=== PATIENT | female | born 1975 | race Hispanic/Latino ===

== ENCOUNTER 2020-07-14 08:48 | Day surgery (SDC) | payer OTHER ==
[2020-07-14 08:49] LABS: Urine Appearance CLEAR; Urine Bilirubin NEGATIVE (NEG); Urine Blood 1+ (NEG); Urine Color YELLOW; Urine Glucose NEGATIVE (NEG); Urine Protein NEGATIVE (NEG); Urine Urobilinogen 0.2 mg/dL (0.2-1.0); Urine pH 5.5 (5.0-7.0)
[2020-07-14 08:53] LABS: Urine Microscopic Reflex ORDER UMIC
[2020-07-14 08:53] LABS: Absolute Lymphocytes (CBC) 2.4 K/uL (0.7-4.9); Basophils % 0.5 % (0-1.3); Hematocrit 40.2 % (36.0-45.0); Lymphocytes % 40.3 % (15.3-44.8); MPV 9.8 fL (7.6-11.3); RBC Red Blood Cell Count 4.31 M/uL (3.86-4.86)
[2020-07-14] MEDS ORDERED: SCOPOLAMINE HYDROBROMIDE PATCH TD ONE (09:08)
[2020-07-14] MEDS ORDERED: Ringers Lactate 1,000 ML IV ONE ×3 (09:08→09:35)
[2020-07-14] MEDS ORDERED: CEFAZOLIN/SWI 1gm 1 GM/10 ML SYR ONE (09:09)
[2020-07-14 09:13] LABS: Urine Bacteria <20 /HPF (<20); Urine Mucus MOD /HPF (NONE SEEN)
--- NOTE | 2020-07-14 09:17 | RAD REPORT ---
EXAM DESCRIPTION: Ronna Parnell And Lat (2 Views)07/14/2020 8:40 am CLINICAL HISTORY: Preop for breast surgery COMPARISON: None FINDINGS: Areas of scarring or subsegmental atelectasis are present within the lingula and right mid dle lobe. Remainder lungs appear clear. Heart is normal size
[2020-07-14] MEDS ORDERED: propofoL 200 MG/20 ML VIAL IV ONE (09:26)
--- OUTSIDE RECORDS SUMMARY | 2020-07-14 09:26 | XMS REPORT | Continuity of Care Document ---
:1975 Author Organization [facility] [employer] Care Team Providers Name Role Phone [facility] [employer] Unavailable Un available Problems Problem Status Onset Classification Date Comments Sourc e Date Reported Spinal stenosis, 10/27/19 01/24/2018 [facility] South lumbar region 18 [place] without neurogenic claudication LOW BACK Active 09/13/19 [facility] 18 Chuckie Z12.31 - ENCNTR Active 02/15/20 O PID SCREEN MAMMOGRAM FOR 17 [place] MA Wellness examination Active Diagnosis 05/16/2016 [facility] Encounter for Active Diagnosis 05/16/2016 [facility] immunization [facility] Cameron up STD exposure Active Diagnosis 05/16/2016 [facility] Screen for colon Active Diagnosis 05/16/2016 [facility] Seasonal allergies Active Diagnosis 05/15/2016 [facility] Allergic cough Active Diagnosis 05/15/2016 [facility] Encounter for 04/10/2020 OP ID screening mammogram [place] for malignant neoplasm of breast Congenital 01/24/2018 S[facility] Sout h spondylolisthesis Ka ty Low back pain 01/24/2018 SMR S outh [place] Muscle weakness 01/24/2018 [facility] South (generalized) [place] Other muscle spasm 01/24/2018 [facility] [place] Abnormal posture 01/24/2018 SM R [place] Stiffness of 01/24/2018 SMR So uth unspecified joint, K aty not elsewhere classified Medications Medication Details Route Status Patient Ordering Order Source Instructions Provider Date Flonase 1 intranasally Active 50 mcg/inh [facility] spray(s) intranasally 016 [facility] once a day Valtrex 1 tab(s) orally Active 1 g orally SING[facility] once a day at [facility] bedtime Advil 1 tab(s) orally Active 200 mg orally SING[facility] every 6 hours [facility] Group Zyrtec 1 tab(s) orally Active 10 mg orally SINGH [facility] once a day [facility] Allergies, Adverse Reactions, Alerts Substance Category Reaction Severity Reaction Status Date Comments S ource type Reported N.K.D.A. Adverse Info Not Adverse Active [facility] Reaction Available Reaction 6 [facility] No Known Assertion Drug MH OP ID Medication allergy [place] Allergies Immunizations Immunization Date Given Site Status Last Comments Source Updated TDap 03/16/2016 completed [facility] Results No Data Provided for This Section Pathology Reports No Data Provided for This Section Diagnostic Reports Report Value Date Source Breast Mammo Scrn KEENAN 04/08/2020 [facility] Ka ty incl CAD MA BILATERAL DIGITAL SCREENING MAMMOGRAM WITH CAD: 04/08/2020 CLINICAL: Screening Mammogram/Z12.31. Current study was evaluated with a Flame Hardening Machine Setter d Detection (CAD) system. COMPARISON:Comparison is mad e to exams dated: 08/27/2018 mammogram, 02/28/2017 [facility], [facility] TECHNIQUE: Mammographic view s were obtained using digital acquisition. Collecta, version 8.1 was utilized for computer aided detection. FINDINGS: The tissue of both breasts i s heterogeneously dense, which could obscure detection of small masses. Bilateral breast implants ar e intact. There are benign calcifications in both breasts. No suspicious masses, cluste rs of microcalcifications or areas of architectural distortion are demonstrated within either breast. There has been no significant interval change. IMPRESSION: BENIGN RECOMMENDATION:There is no m ammographic evidence of malignancy. A 1 year screening mammogram is recommended.(04/09/2021) This exam was interpreted at [id number] for [facility]. Carol dominguez/penrad:04/08/2020 11:44:13 Elevated Work Platform Operator(s): J Carlos Vuong letter sent: BI-RADS 1/2 Mammogram BI-RADS: 2 Benign Spine lumbar wo PROCEDURE INFORMATION: 09/24/2019 [facility] contrast MRI Exam: MR Lumbar Spine Without Contrast. Exam date and time: 09/24/2019 3:08 PM Age: 44 years old Clinical indication: Other intervertebral disc d egeneration, lumbar region; Radiculopathy, lumbar region; Additional info: / m54.16 radiculopathy, lumbar region, m51.36 other intervertebral disc degener ation, lumbar region TECHNIQUE: Imaging protocol: Multiplanar magnetic resonance images of the lumbar spine without intravenous contrast. COMPARISON: No relevant prior studies available. FINDINGS: Vertebrae: There is no compression fracture defo rmity. There is a grade 1/2 anterolisthesis at L4-L5. There is no spondyloly sis. Spinal cord: The conus medularis is normally pos tioned and there is no intrathecal mass. L1-L2: No significant disc disease. No signific ant spinal canal stenosis. No neural foraminal stenosis. L2-L3: No significant disc disease. No signific ant spinal canal stenosis. No neural foraminal stenosis. L3-L4: At the L3-L4 disc space there is a 2 mm b ulging annulus with a left lateral annular fissure without central or abhishek inal stenosis. L4-L5: At the L4-L5 disc space which is desiccated, there is a grade 1/2, 5 mm anterolisthesis and bulging annulus. There is de generative change of facet joints without spondylolysis. Hypertrophic ligam entum flavum and a 3 mm synovial cyst arising from the medial aspect of right facet joint contributes to minimal to moderate right lateral recess stenosis. There is no central canal stenosis. There are small bilateral dorsal infer ior synovial cysts. L5-S1: No significant disc disease. No signific ant spinal canal stenosis. No neural foraminal stenosis. Soft tissues: The psoas and spinae erectae muscl es are normal. The parially visualized sacral iliac joints are normal. IMPRESSION: At the L4-L5 disc space whic h is desiccated, there is a grade 1/2, 5 mm anterolisthesis and bul ging annulus. There is degenerative change of facet joints without spondylolysis. Hypertrophic ligam entum flavum and a 3 mm synovial cyst arising from the medial aspect of right facet joint contributes to minimal to moderate right lateral recess stenosis. There is no central canal stenosis. There are small bilateral dorsal infer ior synovial cysts. Nelson Isabel MD On 09/24/2019 16:04:40; [facility] [id number] Pelvis Transvaginal US Procedure: Pelvic Ultrasound. 05/08/2019 DENISA G[facility]rie Clinical Indication: Abnormal uterine bleeding. Comparison: None. TRANSABDOMINAL SCAN: Not performed. TRANSVAGINAL SCAN: Endovagin al ultrasound was performed to try and better evaluate the endometrial stripe and adnexal regions. The uterus measures 7.8 x 4.3 x 3.9 cm and demonstrates a 4 mm endometrial stripe. The right ovary was not seen secondary to overlying bowel gas. The left ovary measures 2.5 x 1.8 x 1.1 cm and demonstrates a 1.6 cm dominant follicle. Blood flow is observed within the left ovary. The visualized adnexa are maintained. IMPRESSION: 1. Dominant follicle involving the left ovary. 2. Nonvisualization of the right ovary. SL:[id number] Thyroid US PROCEDURE: THYROID ULTRASOUND 11/19/2018 [facility] INDICATION: Hyperthyroidism COMPARISON: None. TECHNIQUE: Sonographic evalu ation of the thyroid gland is performed using high resolution B-mode and supplemental Doppler imaging. FINDINGS: The right lobe measures 4.6 x 1.4 x 1.7 cm The left lobe measures 4.4 x 1.3 x 1.2 cm The isthmus is normal. The right and left lobes are normal in contour a nd echogenicity. There is a tiny anechoic nod ule in the inferior left thyroid lobe measuring 0.3 x 0.2 x 0.37 cm likely colloid cyst. Small echogenic focus noted. No solid nodules identified. IMPRESSION: Tiny cystic left thyroid nodule likely colloid cyst. Otherwise unremarkable sonographic appearance of the thyroid Location: [facility] Breast Mammo Scrn KEENAN w 08/27/2018 PEDRITO Guthrie simno incl CAD MA BILATERAL DIGITAL SCREENING MAMMOGRAM 3D/2D WITH CAD: 08/27/2018 CLINICAL: Screening/Z12.31. Current study was evaluated with a Flame Hardening Machine Setter d Detection (CAD) system. COMPARISON:Comparison is mad e to exams dated: 02/28/2017 mammogram, 02/25/2015 mammogram, and 01/03/2012 mammogram - [facility]. TECHNIQUE: Digital Breast To mosynthesis was performed and utilized for Interpretation. Collecta, version 8.1 was utilized for computer aided detection. FINDINGS: The tissue of both breasts i s extremely dense. This may lower the sensitivity of mammography. There are benign diffuse nathaniel cifications in both breasts. Bilateral retropectoral saline implants are stable. Implants may obscure breast parenchyma, making mammographic interpretation difficult. No suspicious masses, cluste rs of microcalcifications or areas of architectural distortion are demonstrated within either breast. IMPRESSION: BENIGN RECOMMENDATION:There is no m ammographic evidence of malignancy. A 1 year screening mammogram is recommended.(08/28/2019) Professional services are pr ovided by the [facility] Division of Diagnostic Imaging. Amarilis Estrada M.D., rp/penrad:08/27/2018 13:15:29 Elevated Work Platform Operator(s): Anitra Razo letter sent: BI-RADS 1/2 Mammogram BI-RADS: 2 Benign Breast Mammo Scrn KEENAN - BREAST MAMMO SCRN KEENAN INCL CAD MA 2016 [facility] [place] incl CAD MA BILATERAL DIGITAL SCREENING MAMMOGRAM WITH CAD: 02/28/2017 CLINICAL: Annual Screening/Z 12.31 Encounter For Screening Mammogram For Malignant Neoplasm Of Breast. Current study was evaluated with a Flame Hardening Machine Setter d Detection (CAD) system. Comparison is made to exams dated: 02/25/2015 mammogram and 01/03/2012 mammogram - Anitra Guthrie. The tissue of both breasts i s extremely dense. This may lower the sensitivity of mammography. There are benign appearing c alcifications in both breasts. Bilateral retropectoral saline implants are stable. Implants may obscure breast parenchyma, making mammographic interpretation difficult. No suspicious masses, cluste rs of microcalcifications or areas of architectural distortion are demonstrated within either breast. There has been no significant interval change. IMPRESSION: BENIGN There is no mammographic destiney dence of malignancy. A 1 year screening mammogram is recommended. Professional services are pr ovided by the [facility] of Diagnostic Imaging. Rui Tapia D.O., mdl/penrad:02/28/2017 11:08:57 Elevated Work Platform Operator: Anitra Douglas This exam [place] [id number] [place] [facility] [address], [place] [address]. letter sent: Bilateral Benign Mammogram BI-RADS: 2 Benign Digital Mammo Screening - DIGITAL MAMMO SCREENING KEENAN MA 015 [facility] [place] Keenan MA BILATERAL DIGITAL SCREENING MAMMOGRAM WITH CAD: 02/25/2015 CLINICAL: Annual Screening Bilateral/Same. Current study was evaluated with a Flame Hardening Machine Setter d Detection (CAD) system. Comparison is made to exam d ated: 01/03/2012 mammogram - [facility] Chuckie Guthrie. The tissue of both breasts i s extremely dense. This may lower the sensitivity of mammography. There are benign appearing c alcifications in both breasts. Bilateral retropectoral saline implants are stable. Implants may obscure breast parenchyma, making mammographic interpretation difficult. No suspicious masses, cluste rs of microcalcifications or areas of architectural distortion are demonstrated within either breast. There has been no significant interval change. IMPRESSION: BENIGN There is no mammographic destiney dence of malignancy. A 1 year screening mammogram is recommended. Amarilis Estrada M.D. rp/penrad:02/25/2015 16:19:52 Elevated Work Platform Operator: Shama Cancino [facility] miles G[place]rie This exam [place] [id number] [place] [address] [id number]. letter sent: Normal [place] Mammogram BI-RADS: 2 Benign Consultation Notes No Data Provided for This Section Discharge Summaries No Data Provided for This Section History and Physicals No Data Provided for This Section Vital Signs Vital Sign Value Date Comments Source Temperature Oral (F) 97.8 F 07/13/2017 [facility] Height 163.83 cm 07/13/2017 [facility] BMI Calculated 25.47 07/13/2017 [facility] Weight 68.352 07/13/2017 [facility] Systolic (mm Hg) 138 07/13/2017 [facility] Diastolic (mm Hg) 74 07/13/2017 [facility] Heart Rate 76 07/13/2017 [facility] Temperature Oral (F) 96.4 F 03/16/2016 [facility] Weight 142 03/16/2016 [facility] Height 63 03/16/2016 [facility] Respitory Rate 16 03/16/2016 [facility] Diastolic (mm Hg) 70 03/16/2016 [facility] Systolic (mm Hg) 110 03/16/2016 [facility] Temperature Oral (F) 97.8 F 12/16/2015 [facility] Weight 139 12/16/2015 [facility] Height 63 12/16/2015 [facility] Respitory Rate 16 12/16/2015 [facility] Diastolic (mm Hg) 76 12/16/2015 [facility] Systolic (mm Hg) 110 12/16/2015 [facility] Encounters Location Location Encounter Encounter Reason Attending ADM DC Stat us Source Details Type Number For Provider Date Date Visit [facility] [id number] 09/03 09/03 [facility] 06-4r6u-827 /2014 e [facility] [id number] Group 3d5 [facility] [id number] 09/03 09/03 [facility] 09-4696-b64 e Me d Group 0-4cvv286d9 Group 84c [facility] [id number] 09/03 09/03 [facility] 08-7t15-j2c e Me d Group 4-83b62c1y7 Group b1f [facility] [id number] 09/03 09/03 [facility] f0-4afc-a6 e Me d Group [id number] Group 0e3 [facility] [id number] 09/03 09/03 [facility] 22-41t3-t8g e Me d Group 3-2f9m7g916 Group 580 [facility] [id number] 09/03 09/03 [facility] 3a-6r4x-kjs e Me d Group c-986b7di85 Group 3a2 [facility] [id number] 09/03 09/03 [facility] fe-30j0-5f1 e Me d Group [id number]-i77km9738 Group 33d [facility] [id number] 09/03 09/03 [facility] ab-450a-85 e Me d Group c-0b0vb5hb7 Group 325 [facility] [id number] 09/03 09/03 [facility] c5-4510-acf e Me d Group 2-9o1h49y32 Group 3e4 [facility] [id number] 09/03 09/03 [facility] d1-4afd-a2 e Me d Group 8-ya090xu42 Group c2a [facility] Pre-Cpx [id number] 09/28 09/28 [facility] 77-4396-a53 e Me d Group 8-irj0bu7qw Group 49d [facility] Pre-Cpx [id number] 09/28 09/28 [facility] b5-417e-b80 e Me d Group c-92m6o2b2r Group 6e8 [facility] Pre-Cpx [id number] 09/28 09/28 [facility] be-06x4-o7w e Me d Group d-95xt7e60d Group a36 [facility] Pre-Cpx a89p9l72-rr 09/28 09/28 [facility] 5c-4d02-83j e Me d Group c-28dg9d3e0 Group 2d0 [facility] Pre-Cpx [id number] 09/28 09/28 [facility] 19-4563-998 e Me d Group 6-1se240193 Group 87b [facility] Pre-Cpx 0fy01f0s-9w 09/28 09/28 [facility] bb-4n97-d04 e Me d Group a-2st5961b8 Group c3c [facility] Pre-Cpx [id number] 09/28 09/28 [facility] 75-4bef-b1e e Me d Group [id number]-rmd2719a8 Group fa4 [facility] Pre-Cpx [id number] 09/28 09/28 [facility] a1-439a-858 e Me d Group e-81615ebi0 Group 1fb [facility] Pre-Cpx [id number] 09/28 09/28 [facility] 1a-8l00-04l e Me d Group [id number] Group 7d2 [facility] Pre-Cpx [id number] 09/28 09/28 [facility] ec-425b-8b e Me d Group c-13922cd50 Group 5db [facility] CPX [id number]-yb 10/06 10/[address] [facility] 81-4016-a7d e Me d Group 7-o045lz91t Group b8d [facility] [id number] 10/06 10/06 [facility] 0a-26x0-98l /2014 e Me d Group 0-7e2xd7ee1 Group e83 [facility] CP[facility] [id number] 10/06 10/06 [facility] 98-1v3k-d11 /2014 e Me d Group c-1n464e6c7 Group 444 [facility] CPX 41k7k8m0-7v 10/06 10/06 [facility] f7-8o6k-117 /2014 e Me d Group 4-qymjgs9g9 Group 49f [facility] CPX [id number] 10/06 10/06 [facility] 27-94x5-ott /2014 e Me d Group c-k0j76qj42 Group 721 [facility] [id number] 10/06 10/06 [facility] 0a-4787-b9b /2014 e Me d Group [id number]-w83072z36 Group d94 [facility] CP[facility] [id number] 10/06 10/06 [facility] 9b-453c-afa /2014 e Me d Group a-j1ef4vbx3 Group 378 [facility] [id number]-b6 10/06 10/06 [facility] 72-4eab-a47 /2014 e Me d Group 6-v2j98de68 Group a96 [facility] CP[facility] f4e61qy7-gg 10/06 10/06 [facility] 52-29k6-yy5 /2014 e Me d Group 5-oi86071ke Group 0ff [facility] CPX [id number] 10/06 10/06 [facility] b3-41ce-97c /2014 e Me d Group d-a25w4iw83 Group e31 [facility] Out[facility] Diag [id number] Ewelina 02/25 02/26 [facility] 1 Patronella /2014 [place] [facility] cough/sore [id number] 12/15 12/15 [facility] throat a8-4354-83f /2015 e [facility] Group 3-kjl0ek3ar Group 9e0 [facility] cough/sore 49w08vhz-vu 12/15 12/15 [facility] throat 15-9cw8-45a /2015 e [facility] d Group 8-6l5m5138a Group e19 [facility] cough/sore 61yal916-a5 12/15 12/15 [facility] throat 14-48fc-8bd /2015 e [facility] d Group 2-69m3m92tm Group 9c4 [facility] cpx - appt yq3j7b2o-52 01/31 01/31 [facility] / pcb *02/16 5a-8v5k-pqg /2015 e [facility] 8-m309u23o4 Group 2f7 [facility] cpx - appt [id number] 01/31 01/31 [facility] / pcb *02/16 ee-4038-877 /2015 e [facility] b-n77034t93 Group d94 [facility] cpx - appt [id number]-h4 01/31 01/31 [facility] / pcb *02/16 70-43ef-adc /2015 e [facility] 8-2179k7i44 Group 393 [facility] cpx - appt [id number] 01/31 01/31 [facility] / pcb *02/16 21-78u5-l85 /2015 e [facility] c-91zq6c7gf Group 82d [facility] cpx - appt [id number] 01/31 01/31 [facility] / pcb *02/16 9a-0r74-217 /2015 e [facility] [id number] Group de3 [facility] c[facility] - appt [id number] 01/31 01/31 [facility] / pcb *02/16 64-8g98-59e /2015 [facility] 2-43o89s7yk Group c95 [facility] cpx - appt [id number] 01/31 01/31 [facility] / pcb *02/16 cd-30o8-47l /2015 [facility] f-jb96w8ph1 Group 6af [facility] cpx - appt [id number] 01/31 01/31 [facility] / pcb *02/16 32-01i6-b95 /2015 e [facility] 0-7931h18i3 Group ab6 [facility] c[facility] - appt [id number]-[id number] 01/31 01/31 [facility] / pcb *02/16 5b-02e3-ikv /2015 e [facility] [id number] Group 93f [facility] cpx - appt [id number] 01/31 01/31 [facility] / pcb *02/16 86-56j3-o12 /2015 e [facility] 3-95j84gf61 Group 1c3 [facility] basic/fasti 4v406b9e-ij 03/16 03/16 [facility] ng labs 9f-1j10-317 /2015 e M ed Group d-328r3ro1q Group 3b3 [facility] basic/fasti 14ffcaeb-52 03/16 03/16 [facility] ng labs 48-48k8-h32 e M ed Group 9-k2j325r20 Group 78b [facility] basic/fasti [id number] 03/16 03/16 [facility] ng labs b0-8i8y-h44 /2015 e M ed Group 7-44o2v7uj4 Group 283 [facility] basic/fasti [id number]-f9 03/16 03/16 [facility] ng labs b2-4298-aa e M ed Group 2-i5pw5p191 Group 3ff [facility] basic/fasti 69y27939-10 03/16 03/16 [facility] ng labs e5-412d-951 /2015 e M ed Group 7-h365c357j Group 7fc [facility] basic/fasti 6wx1kux7-03 03/16 03/16 [facility] ng labs 7d-2k7r-9p7 e M ed Group b-h5980l0n0 Group f93 [facility] basic/fasti rl9b8yus-74 03/16 03/16 [facility] ng labs 9c-40fd-bba /2015 e M ed Group f-94585t990 Group e6b [facility] basic/fasti 151ti087-83 03/16 03/16 [facility] ng labs c1-4cdd-817 /2015 e M ed Group d-nl552y1d4 Group eab [facility] FYI only i1vp787e-pi 03/17 03/17 [facility] 63-4891-8c3 /2015 e Me d Group 8-sn71v1cww Group 3b2 [facility] FYI only p4qhx7ov-1i 03/17 03/17 [facility] 1e-8xt5-72q /2015 e Me d Group 0-043n438gx Group c7c [facility] FYI only 76wdn80h-et 03/17 03/17 [facility] 38-0p5h-im5 /2015 e Me d Group 4-0qv56rz73 Group a03 [facility] FYI only [id number]-74 03/17 03/17 [facility] b6-1j87-uik /2015 e Me d Group c-6gbts9706 Group f12 [facility] FYI only iep10743-lv 03/17 03/17 [facility] 95-447c-919 /2015 e Me d Group 4-3d6zdex08 Group 51a [facility] FYI only [id number] 03/17 03/17 [facility] 65-478e-a33 /2015 e Me d Group c-kf5i0k64i Group 460 [facility] FYI only [id number]-43 03/17 03/17 [facility] fb-4584-81d /2015 e Me d Group e-n8zjb8bqe Group 0c1 [facility] FYI only [id number]-[id number] 03/17 03/17 [facility] 6e-46fc-95b /2015 e Me d Group 9-a8473362e Group 6d7 [facility] Vitamin E dy9f7pax-0i 03/17 03/17 [facility] test bb-1ta7-ci0 /2015 e Me d Group 7-0f9xd0a7z Group 92d [facility] Vitamin E b0909vd9-s0 03/17 03/17 [facility] test 86-23j2-581 /2015 e Me d Group 0-s82945iy0 Group 6a9 [facility] Vitamin E [id number] 03/17 03/17 [facility] test 2f-0gw0-94y /2015 e Me d Group 8-eax727180 Group 433 [facility] Vitamin E gx4j4933-m6 03/17 03/17 [facility] test ef-438d-a4d /2015 e Me d Group 3-255c06j99 Group e08 [facility] Vitamin E [id number]-fp 03/17 03/17 [facility] test 06-4077-b44 e Me d Group 3-n678ds3dv Group eef [facility] Vitamin E 3666aw2t-x2 03/17 03/17 [facility] test bb-4327-968 /2015 e Me d Group 9-r01u2ls36 Group 71b [facility] Vitamin E 8uun8119-r1 03/17 03/17 [facility] test f8-419c-bce /2015 e Me d Group a-70759283f Group 8cd [facility] New Refill 12cxy6bb-52 04/03 04/03 [facility] Request 73-4454-8b e M ed Group 7-06cf03fw0 Group c35 [facility] New Refill [id number] 04/03 04/03 [facility] Request 49-4124-936 e M ed Group f-46g0wl0g3 Group 21b [facility] New Refill 4rc4e08c-5j 04/03 04/03 [facility] Request 6e-8v56-w57 e M ed Group 6-g5s304jc5 Group f70 [facility] New Refill [id number]-k5 04/03 04/03 [facility] Request 73-435d-961 /2015 e M ed Group c-yx6yngml5 Group cf8 [facility] New Refill [id number]-77 04/03 04/03 [facility] Request a9-471d-9a4 e M ed Group e-2m328j084 Group 6a4 [facility] New Refill [id number] 04/03 04/03 [facility] Request b4-63z6-oo7 e M ed Group 7-420iq4i66 Group 634 [facility] rx [id number]-u8 04/04 04/04 [facility] clarificati 03-5c11-381 /2015 e Med Group on 9-5482406ri Group 637 [facility] rx [id number]-sk 04/04 04/04 [facility] clarificati 3f-9v43-vl0 e Med Group on 7-szssw0do1 Group c95 [facility] rx [id number] 04/04 04/04 [facility] clarificati fd-3g85-739 /2015 e Med Group on f-0q29z5a5a Group bc8 [facility] rx [id number] 04/04 04/04 [facility] clarificati be-4198-9ed e Med Group on 2-fb2s54h64 Group 959 [facility] rx [id number] 04/04 04/04 [facility] clarificati 73-489c-afd e Med Group on 6-x37s69q0n Group e80 [facility] Unknown [id number]-r0 04/04 04/04 [facility] e5-4845-824 /2015 e Me d Group f-j9599u832 Group ce6 [facility] Unknown 42ot8l5k-[id number] 04/04 04/04 [facility] 7e-6w0g-z63 e Me d Group c-82ln4f9d8 Group 5d6 [facility] Unknown [id number] 04/04 04/04 [facility] dc-5y52-2z0 /2015 e Me d Group 4-7563j60w4 Group c58 [facility] Unknown [id number] 04/04 04/04 [facility] af-1qs9-s4p /2015 e Me d Group 4-z647r8011 Group 72e [facility] Unknown [id number] 04/04 04/04 [facility] 9e-43d7-99e e Me d Group 6-fy727006i Group todd [facility] unlock note [id number]-57 05/12 05/12 [facility] 68-4672-9f4 /2015 e Me d Group 1-b6zy2vpr2 Group 751 [facility] unlock note [id number] 05/12 05/12 [facility] 8a-463a-b8e /2015 e Me d Group 9-7rb5rbnwm Group b45 [facility] Outpt Diag [id number] Olya 02/28 03/01 [facility] 2 Kwan [facility] [place] Outpatient [id number] VANESA 07/13 [facility] 0 [facility] [id number] Vanesa 07/13 07/14 [facility] 0 [facility] [place] [id number] Ministerio 09/19 10/19 [facility] [place] [facility] [place] [facility] Outpt Diag [id number] Ksylar 08/27 08/28 [facility] 3 Ibll [facility] [place] [facility] Outpt Diag [id number] Robert 11/19 11/20 [facility] 4 Saffari Kelin [facility] - [place] [facility] Outpt Diag [id number] Skylar 05/08 05/09 [facility] 5 Bill [facility] [place] [facility] Outpt Diag [id number] Leticia 09/24 09/25 [facility] 6 Tatiana /2019 So [facility] Imaging - [place] [facility] Outpt Diag [id number] [place] Alicia 04/08 04/09 [facility] [place] Procedures No Data Provided for This Section Assessment and Plan No Data Provided for This Section Plan of Care No Data Provided for This Section Social History Social History Date Source Social History TypeResponse 07/13/2017 [facility] [place] Smoking Status Never smoker; Exposure to Tobacco Smoke None; Cigarette Smoking Last 365 Days No; Reg Smoking Cessation Counseling No entered on: 07/13/17 Social History TypeResponse 07/13/2017 [facility] [place] Smoking Status Never smoker; Exposure to Tobacco Smoke None; Cigarette Smoking Last 365 Days No; Reg Smoking Cessation Counseling No entered on: 07/13/17 Social History TypeResponse 07/13/2017 [facility] [place] Smoking Status Never smoker; Exposure to Tobacco Smoke None; Cigarette Smoking Last 365 Days No; Reg Smoking Cessation Counseling No entered on: 07/13/17 Social History TypeResponse 07/13/2017 [facility] [place] Smoking Status Never smoker; Exposure to Tobacco Smoke None; Cigarette Smoking Last 365 Days No; Reg Smoking Cessation Counseling No Social History ElementQualifiersDate Reported 03/16/2016 [employer] Occupation: . employed March 16, 2016 Caffeine: . 1 cup of coffee/soda/tea per day March 16, 2016 Children: . 2 daughter March 16, 2016 Exercise: . 6 x per week March 16, 2016 Pets: . None March 16, 2016 Drug use: . None reported March 16, 2016 Sexually active: . No March 16, 2016 Marital Status: . March 16, 2016 Tobacco Use: . Are you a: Former smoker March 16, 2016 Alcohol Use: . Status: Socially March 16, 2016 Travel ouside [place]: . No March 16, 2016 Smoke Exposure: . Second Hand Smoke Exposure: No March 16, 2016 Occup. exposure: . None March 16, 2016 Family History Value Date Source QualifierDescriptionCommentDate Reported 03/17/2016 [employer] Maternal Grand Mother alive Comment not available March 16, 2016 Paternal Grand Mother alive Comment not available March 16, 2016 Siblings alive Comment not available March 16, 2016 Maternal Grand Father skin cancer March 16, 2016 Children alive Comment not available March 16, 2016 Maternal aunt Comment not available March 16, 2016 Father alive addiction March 16, 2016 Paternal Grand Father Comment not available March 16, 2016 Paternal uncle Comment not available March 16, 2016 Mother alive Comment not available March 16, 2016 Paternal aunt Comment not available March 16, 2016 Maternal uncle Comment not available March 16, 2016 Advance Directives No Data Provided for This Section Functional Status No Data Provided for This Section
--- OUTSIDE RECORDS SUMMARY | 2020-07-14 09:26 | XMS REPORT | Clinical Summary ---
:1975 Author Organization [facility] Address [address] [place] [address] Care Team Providers Name Role Phone MD Elizabeth Primary Care Provider Allergies Not on File Medications Not on file Active Problems Not on file Social History Tobacco Use Types Packs/Day Years Used Date Never Assessed Sex Assigned at Date Recorded Not on file Last Filed Vital Signs Not on file Plan of Treatment Health Maintenance Due Date Last Done Comments CERVICAL CANCER SCREENING 01/26/1996 INFLUENZA VACCINE 03/20/2020 Results Not on fileafter 07/14/2019 Advance Directives For more information, please contact: [phone] Type Date Recorded 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
[2020-07-14] MEDS ORDERED: MIDAZOLAM HCL 2 MG/2 ML INJ ONE ×2 (09:27→09:52)
[2020-07-14] MEDS ORDERED: LIDOCAINE 2% MPF 5 ML VIAL ONE (09:27)
[2020-07-14] MEDS ORDERED: GLYCOPYRROLATE 0.2 MG/ML SYR ONE (09:27)
[2020-07-14] MEDS ORDERED: FENTANYL CITR 250 MCG/5 ML ONE (09:27)
[2020-07-14] MEDS ORDERED: ONDANSETRON 4 MG/2 ML VIAL ONE ×2 (09:28→14:57)
[2020-07-14] MEDS ORDERED: dexAMETHasone 10 MG/ML VIAL ONE (09:28)
[2020-07-14] MEDS ORDERED: ROCURONIUM 50 MG/5 ML VIAL IV ONE ×2 (09:28→11:23)
--- OUTSIDE RECORDS SUMMARY | 2020-07-14 09:28 | XMS REPORT | Continuity of Care Document ---
:1975 Author Organization [facility] [place] [facility] t Address [address] [place] [address] Care Team Providers Name Role Phone Elizabeth VERDE Primary Care Physician ELIZABETH Attending Clinician Unavailable Kevin Attending Clinician GONZALO Attending Clinician Unavailable COAshley Attending Clinician Unavailable TATIANA Attending Clinician Unavailable Jose Simpson Attending Clinician SAMI Attending Clinician Unavailable IRASEMA Attending Clinician Unavailable Deidre Khan Attending Clinician CIPRIANO Attending Clinician Unavailable Charley Lerner Attending Clinician JEOVANNY Attending Clinician Unavailable BETTY Attending Clinician Unavailable Avi Harvey Attending Clinician WES Attending Clinician Unavailable JAVON Attending Clinician Unavailable Betty Attending Clinician Leslie Kwan Attending Clinician TAWNYA Attending Clinician Unavailable Glenn Abdi Attending Clinician Problems Condition Condition Condition Status Onset Resolution Last Treating Co mments Source Name Details Category Date Date Treatment Clinician Date LOW BACK Diagnosis Active 2017-09-21 M emoria 09-13 08:37:00 l LOW BACK 08:00: Bony farooq 00 Active 09/13/2017 [facility] Chuckie Z12.31 - Diagnosis Active 2017-03-08 M emoria ENCNTR 02-14 13:12:00 l SCREEN Z12.31 - 00:01: Bony farooq MAMMOGRAM ENCNTR 00 FOR MA SCREEN MAMMOGRAM FOR MA Active 02/14/2017 DENISA Nogueira History of History of Problem Resolve [facility] Breast Breast d [place] Low back Low back Problem Active Unive rs pain pain ity of [place] [facility] ans History of History of Problem Resolve Univers 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 [place] [facility] ans Lumbosacra Lumbosacra Problem Active U nivers l strain, l strain, ity of initial initial [place] encounter encounter Phys ici ans Vision Vision Problem Active Univers problem problem ity of [place] [facility] ans Allergic Allergic Problem Active Unive rs rhinitis rhinitis ity of [place] [facility] ans 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 ity of [place] [facility] ans Encounter Encounter Problem Active Uni vers for for ity of routine routine [place] gynecologi gynecologi Ph ysici verna verna ans examinatio examinatio n with n with Papanicola Papanicola ou smear ou smear of cervix of cervix Vaginal Vaginal Problem Active Univers discharge discharge ity of [place] [facility] ans Screen for Screen for Problem Active U nivers sexually sexually [place] of transmitte transmitte [place] d diseases d diseases Ph ysici ans Low TSH Low TSH Problem Active Univers level level ity of [place] [facility] ans Secondary Secondary Problem Active Uni vers amenorrhea amenorrhea it y of [place] [facility] ans MDD (major MDD (major Problem Active U nivers depressive depressive it [place] of disorder), disorder), [place] single single Physici episode, episode, ans mild mild Alcohol Alcohol Problem Active Univers use use [place] of disorder, disorder, [place] moderate, moderate, Phys ici dependence dependence an s Severe Severe Problem Active Univers episode of episode of it [place] of recurrent recurrent [place] major major [place]ici depressive depressive an s disorder, disorder, without without psychotic psychotic features features Hyperthyro Hyperthyro Problem Active U nivers idism idism ity of [place] Physici ans Abnormal Abnormal Problem Active Unive rs thyroid thyroid ity of function function [place] test test Physici ans Follow up Follow up Problem Active Uni vers ity of [place] [facility] ans Hormone Hormone Problem Active Univers replacemen replacemen it [place] of t therapy t therapy [place] Trochanter Trochanter Problem Active U nivers ic ic ity of bursitis bursitis [place] of right of right Physic i hip hip ans SEBAS SEBAS Problem Active Univers (generaliz (generaliz it y of ed anxiety ed anxiety [place] disorder) disorder) Phys ici ans PTSD PTSD Problem Active Univers (post-trau (post-trau it y of matic matic [place] stress stress Physici disorder) disorder) ans 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 [place] of disorder, disorder, [place] recurrent recurrent Phys ici episode, episode, ans moderate moderate with with anxious anxious distress distress Alcohol Alcohol Problem Active Univers use use [place] of disorder, disorder, [place] moderate, moderate, Phys ici in early in early ans remission remission Chronic Chronic Problem Active Univers insomnia insomnia ity of [place] [facility] ans Encounter Encounter Problem Active Uni vers for for ity of vitamin vitamin [place] deficiency deficiency Ph ysici screening screening ans Preoperati Preoperati Problem Active U nivers ve ve it[place] of clearance clearance [place] Need for Need for Problem Active Unive rs influenza influenza ity of vaccinatio vaccinatio [place] n Physici ans Post-menop Post-menop Problem Active U nivers ause ause ity of [place] [facility]ici ans Abnormal Abnormal Problem Active Unive rs uterine uterine ity of bleeding bleeding [place] (AUB) (AUB) Physici ans Depression Depression Problem Active U nivers ity of [place] [facility] ans Anxiety Anxiety Problem Active Univers ity of [place] ans Hyperlipid Hyperlipid Problem Active U nivers emia emia ity of [place] [facility] ans Microscopi Microscopi Problem Active U nivers c c ity of hematuria hematuria [place] Hormone Hormone Problem Active Univers disorder disorder ity of [place] [facility] ans DDD DDD Problem Active Univers (degenerat (degenerat it y of duong disc duong disc [place] disease), disease), Phys ici lumbar lumbar ans 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 lumbar [place] region region Physici ans 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 it y of s s [place] [facility] ans Sacroiliit Sacroiliit Problem Active U nivers is is ity of [place] [facility] ans Thyroid Thyroid Problem Active Univers nodule nodule ity of [place] [facility] ans Myofascial Myofascial Problem Active U nivers pain pain ity of syndrome syndrome [place] [facility]ici ans Neuropathi Neuropathi Problem Active U nivers c pain c pain ity of [place] [facility] ans Macrocytos Macrocytos Problem Active U nivers is without is without it y of anemia anemia [place] [facility] ans Lumbar Lumbar Problem Active Univers radiculopa radiculopa it y of thy thy [place] [facility] ans Lumbosacra Lumbosacra Problem Active U nivers l l ity of spondylosi [place]ondylosi [place] Physici ans Gastrointe Gastrointe Problem Active U nivers stinal stinal ity of food food [place] sensitivit sensitivit Ph ysici y y ans Prehyperte Prehyperte Problem Active U nivers nsion nsion ity of [place] [facility]ici ans Reactive Reactive Problem Active Unive rs hypertensi hypertensi it y of on on [place] [facility] ans Close Close Problem Active Univers exposure exposure ity of to to [place] COVID-19 COVID-19 Physic i virus virus ans Tension Tension Problem Active Univers headache headache ity of [place] [facility]ici ans Encounter Problem 2020-04-10 Ny moria for 23:14:41 l screening [place] mammogram Encounter for for malignant screening neoplasm mammogram of breast for malignant neoplasm of breast 04/10/2020 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:30: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 01/24/2018 SMR Phill Mirlande Muscle Problem 2018-01-24 Memor ia weakness 11:30:30 l (generaliz Muscle Herm susan ed) weakness (generaliz ed) 01/24/2018 SMR Phill Mirlande Other Problem 2018-01-24 Memor ia muscle 11:30:30 l spasm Other Chuckie muscle spasm 01/24/2018 SMR Phill Mirlande Abnormal Problem 2018-01-24 Mem oria posture 11:30:30 l Abnormal Bony n posture 01/24/2018 SMR Phill Suey Stiffness Problem 2018-01-24 Ny moria of 11:30:30 l unspecifie Bony n d joint, Stiffness not of elsewhere unspecifie classified d joint, not elsewhere classified 01/24/2018 SMR Phill Nogueira Wellness Diagnosis Active 2016-05-16 M emoria examinatio 03:02:32 l n Wellness Bony n examinatio n Active Diagnosis 05/16/2016 [facility] Encounter Diagnosis Active 2016-05-16 Memoria for 03:02:32 l immunizati Bony n on Encounter for immunizati on Active Diagnosis 05/16/2016 [facility] STD Diagnosis Active 2016-05-16 Mem oria exposure 03:02:32 l STD [place] exposure Active Diagnosis 05/16/2016 [facility] Screen for Diagnosis Active 2016-05-16 Memoria colon 03:02:32 l cancer Screen [place] for colon cancer Active Diagnosis 05/16/2016 [facility] Seasonal Diagnosis Active 2016-05-15 M emoria allergies 03:02:41 l Seasonal Bony n allergies Active Diagnosis 05/15/2016 [facility] Allergic Diagnosis Active 2016-05-15 M emoria cough 03:02:41 l Allergic Bony n cough Active Diagnosis 05/15/2016 [facility] Spinal Problem 2017-2018-01-24 2018-01-24 M emoria stenosis, 10-26 11:30:30 11:30:30 l lumbar Spinal 05:14: Chuckie region stenosis, 02 without lumbar neurogenic region claudicati without on neurogenic claudicati on 10/26/2017 01/24/2018 SMR [facility] Allergies, Adverse Reactions, Alerts Allergy Allergy Status Severity Reaction(s) Onset Inactive Treating Comm ents Source Name Type Date Date Clinician N.K.D.A. N.K.D.A. Active Info Not J Carlos flako Available 03-16 l 00:00: Chuckie 00 morphine Allergy Active Univers to drug ity of ([facility] ) Physici ans tramadol Allergy Active Univers to drug ity of ([facility] ) Physici ans No Known No Known Active Memori a Medicati Medicati l on on [place] Allergie Allergie s s Family History Family Member Diagnosis Comments Start Date Stop Date Source Unknown Family Family history of Family History University of Member cardiac disorder [place] Ph [facility]icians Unknown Family Family history of Family History [facility] hyperlipidemia [place] Phys icians Unknown Family Family History 2016-03-17 2016-03-17 Memori al [place] Member 03:10:08 03:10:08 Social History Social Habit Start Date Stop Date Quantity Comments Source Sex Assigned At [facility] ethodist Occupation: 2016-03-16 2016-03-16 [facility] susan 00:00:00 00:00:00 Smoking Status Start Date Stop Date Source Social History [facility] Medications Ordered Filled Start Stop Current Ordering Indication Dosage Frequency Signature Comments Components Source Medication Medication Date Date Medication? Clinician (SIG) Name Name methylPREDN methylPREDN 2019-08 Yes [place] Medrol Univers ISolone 4 ISolone 4 0-08 SAFFARI Dose pack, ity of MG Oral MG Oral 00:00: M.D. USE [place] Tablet Tablet 00 DIRECTED. Physic i ans Gralise 600 Gralise 600 2019- Yes LETICIA 3 po 4hrs Univers MG Oral MG Oral 2-26 TATIANA before ity of Tablet Tablet 00:00: M.D. bedtime [place] 00 with meal Physici ans Cyclobenzap Cyclobenzap Yes [place] Q0.3333D TAKE 1 Univers rine HCl - rine HCl - 2-12 SAFFARI TABLET ity of 10 MG Oral 10 MG Oral 00:00: M.D. BEDTIME as [place] Tablet Tablet 00 needed for Physi ci spasm ans Gralise Gralise 0 Yes M.D. Univers Starter 300 Starter 300 2-07 i ty of & 600 MG & 600 MG 00:00: [place] MISC MISC 00 Physici ans valACYclovi valACYclovi 2018- Yes [place] TAKE ONE Univers r HCl - 1 r HCl - 1 8-14 SAFFARI (1) it y of GM Oral GM Oral 00:00: M.D. TABLET(S) [place] Tablet Tablet 00 BY MOUTH Physici ONCE A ans DAY. Desvenlafax Desvenlafax Yes CHANEL TAKE 1 Univers ine ine 2-11 TANNU M.D. TABLET BY ity of Succinate Succinate 00:00: MOUTH [place] ER 100 MG ER 100 MG 00 EVERY DAY Physici Oral Tablet Oral Tablet a ns Extended Extended Release 24 Release 24 Hour Hour Cetirizine Cetirizine 2017- Yes [place] TAKE ONE Univers HCl - 10 MG HCl - 10 MG 5-16 SAFFARI (1) ity of Oral Tablet Oral Tablet 00:00: M.D. TABLET(S) [place] 00 BY MOUTH Physici ONCE A ans DAY. Fluticasone Fluticasone 2017- Yes [place] Q0.5D USE 1 Univers Propionate Propionate 5-01 SAFFARI SPRAY IN ity of 50 MCG/ACT 50 MCG/ACT 00:00: M.D. EACH [place] Nasal Nasal 00 NOSTRIL Physici Suspension Suspension TWICE an s DAILY. traZODone traZODone 2017- Yes CHANEL 1 TAKE ONE Univers HCl - 50 MG HCl - 50 MG 1-05 GONZALO Álvarez AND ity of Oral Tablet Oral Tablet 00:00: ONE-HALF (&08/21) Physici TABLET BY ans MOUTH AT BEDTIME NEEDED. Valtrex Yes KAREN 1 tab(s) Me moria 05-16 SINGH l 03:02: Advil Yes KAREN 1 tab(s) J Carlos flako 05-16 SINGH l 03:02: Zyrtec Yes KAREN 1 tab(s) Mem oria 05-16 SINGH l 03:02: Flonase Yes KAREN 1 spray(s) Memoria 12-15 SINGH l 00:00: Biotin TABS Biotin TABS Yes M.D. U nivers ity of [facility] ans Vitamin C Vitamin C Yes M.D. Unive rs TABS TABS ity of [facility] ans Vitamin D Vitamin D Yes M.D. Unive rs CAPS CAPS ity of [facility] ans Immunizations Ordered Immunization Filled Immunization Date Status Commen ts Source Name Name Flucelvax 2020-05-03 Completed University of Quadrivalent 0.5 ML 00:00:00 [place] Physicians Intramuscular Suspension Prefilled Syringe Fluzone Quadrivalent 2019-08-28 Completed Univ ersity of 0.5 ML Intramuscular 09:29:00 [facility] Physicians Suspension Tdap (Adacel) 2017-06-20 Completed [facility] 15:50:00 [place] Jose ns Fluzone Quadrivalent 2017-06-20 Completed Univ ersity of 0.5 ML Intramuscular 15:49:00 [facility] Suspension Vital Signs Vital Name Observation Time Observation Value Comments Source Systolic blood 2020-02-03 124 mm[Hg] Location: [facility]; [facility] 09:46:00 Position: [place] Physician s Sitting Diastolic blood 2020-02-03 87 mm[Hg] Location: [facility]; [facility] 09:46:00 Position: [place] Physician s Sitting Weight 2020-02-03 158 [lb_av] [facility] 09:46:00 [place] Physician s Body mass index 2020-02-03 27.99 kg/m2 University o f (BMI) [Ratio] 09:46:00 John Garcia ns Body height 2020-02-03 63 [in_us] University 09:46:00 [place] Physician s Body temperature 2020-02-03 98.3 [degF] Method: Oral University of 09:46:00 [place] Phys[place] s Heart Rate 2020-02-03 73 /min University of 09:46:00 [place] Physician s Systolic blood 2020-01-21 147 mm[Hg] Location: [place]; [facility] 15:39:00 Position: [place] Physician s Sitting Diastolic blood 2020-01-21 93 mm[Hg] Location: [place]; [facility] pressure 15:39:00 Position: [place] Physician s Sitting Weight 2020-01-21 160 [lb_av] University of 15:39:00 [place] Physician s Body mass index 2020-01-21 28.34 kg/m2 University o f (BMI) [Ratio] 15:39:00 [place] Physicia ns Body temperature 2020-01-21 98.2 [degF] Method: Oral University 15:39:00 [place] Physician s Heart Rate 2020-01-21 64 /min University of 15:39:00 [place] Physician s BP Systolic 2019-09-10 127 mm[Hg] Location: [place]; [facility] 10:26:00 Position: [place] Physician s Sitting BP Diastolic 2019-09-10 84 mm[Hg] Location: [place]; [facility] 10:26:00 Position: [place] Physician s Sitting Height 2019-09-10 63 [in_us] University of 10:26:00 [place] Physician s Weight 2019-09-10 156 [lb_av] University 10:26:00 [place] Physician s Body Mass Index 2019-09-10 27.63 kg/m2 University o f Calculated 10:26:00 [place] Physician s Heart Rate 2019-09-10 84 /min University of 10:26:00 [place] Physician s BP Systolic 2019-08-28 118 mm[Hg] Location: [facility]; [place] of 08:59:00 Position: [place] Physician s Sitting BP Diastolic 2019-08-28 78 mm[Hg] Location: [place]; [facility] 08:59:00 Position: [place] Physician s Sitting Height 2019-08-28 63 [in_us] [facility] 08:59:00 [place] Physician s Weight 2019-08-28 150 [lb_av] [facility] 08:59:00 [place] Physician s Body Mass Index 2019-08-28 26.57 kg/m2 University o f Calculated 08:59:00 [place] Physician s Temperature 2019-08-28 98.1 [degF] Method: Oral University of 08:59:00 [place] Physician s Heart Rate 2019-08-28 58 /min University of 08:59:00 [place] Physician s BP Systolic 2019-08-21 110 mm[Hg] Location: [facility]; [place] of 14:19:00 Position: [place] Physician s Sitting BP Diastolic 2019-08-21 72 mm[Hg] Location: [facility]; [place] of 14:19:00 Position: [place] Physician s Sitting BP Systolic 2019-08-21 143 mm[Hg] Location: [facility]; [place] of 14:17:00 Position: [place] Physician s Sitting BP Diastolic 2019-08-21 81 mm[Hg] Location: [facility]; [facility] 14:17:00 Position: [place] Physician s Sitting Height 2019-08-21 63 [in_us] University of 14:17:00 [place] Physician s Weight 2019-08-21 152 [lb_av] University of 14:17:00 [place] Physician s Body Mass Index 2019-08-21 26.93 kg/m2 University o f Calculated 14:17:00 [place] Physician s Temperature 2019-08-21 98.1 [degF] Method: Oral University of 14:17:00 [place] Physician s Heart Rate 2019-08-21 94 /min University of 14:17:00 [place] Physician s BP Systolic 2019-06-09 116 mm[Hg] Location: [facility]; [place] of 11:37:00 Position: [place] Physician s Sitting BP Diastolic 2019-06-09 79 mm[Hg] Location: [facility]; [place] of 11:37:00 Position: [place] Physician s Sitting Height 2019-06-09 62.5 [in_us] University of 11:37:00 [place] Physician s Weight 2019-06-09 152 [lb_av] University of 11:37:00 [place] Physician s Body Mass Index 2019-06-09 27.36 kg/m2 University o f Calculated 11:37:00 [place] Physician s Heart Rate 2019-06-09 63 /min University of 11:37:00 [place] Physician s BP Systolic 2019-04-28 136 mm[Hg] Location: [facility]; [place] of 13:37:00 Position: [place] Physician s Sitting BP Diastolic 2019-04-28 90 mm[Hg] Location: [facility]; [facility] 13:37:00 Position: [place] Physician s Sitting Height 2019-04-28 62.5 [in_us] University of 13:37:00 [place] Physician s Weight 2019-04-28 151 [lb_av] University of 13:37:00 [place] Physician s Body Mass Index 2019-04-28 27.18 kg/m2 University o f Calculated 13:37:00 [place] Physician s Heart Rate 2019-04-28 54 /min University 13:37:00 [place] Physician s BP Systolic 2019-04-15 123 mm[Hg] Location: [facility]; [facility] 08:24:00 Position: [place] Physician s Sitting BP Diastolic 2019-04-15 86 mm[Hg] Location: [facility]; [facility] 08:24:00 Position: [place] Physician s Sitting Height 2019-04-15 62.5 [in_us] [place] of 08:24:00 [place] Physician s Weight 2019-04-15 149 [lb_av] [facility] 08:24:00 [place] Physician s Body Mass Index 2019-04-15 26.82 kg/m2 University o f Calculated 08:24:00 [place] Physician s Heart Rate 2019-04-15 60 /min [place] of 08:24:00 [place] Physician s BP Systolic 2018-12-27 126 mm[Hg] Location: [facility] 08:10:00 Position: [place] Physician s Sitting BP Diastolic 2018-12-27 79 mm[Hg] Location: [facility] 08:10:00 Position: [place] Physician s Sitting Height 2018-12-27 62.5 [in_us] [facility] 08:10:00 [place] Physician s Weight 2018-12-27 146 [lb_av] [facility] 08:10:00 [place] Physician s Body Mass Index 2018-12-27 26.28 kg/m2 University o f Calculated 08:10:00 [place] Physician s Heart Rate 2018-12-27 67 /min University of 08:10:00 [place] Physician s BP Systolic 2018-11-05 128 mm[Hg] University 10:12:00 [place] Physician s BP Diastolic 2018-11-05 81 mm[Hg] University 10:12:00 [place] Physician s Height 2018-11-05 62.5 [in_us] University 10:12:00 [place] Physician s Weight 2018-11-05 143 [lb_av] University 10:12:00 [place] Physician s Body Mass Index 2018-11-05 25.74 kg/m2 University o f Calculated 10:12:00 [place] Physician s Temperature 2018-11-05 98 [degF] University 10:12:00 [place] Physician s Heart Rate 2018-11-05 54 /min University 10:12:00 [place] Physician s BP Systolic 2018-10-23 118 mm[Hg] Location: [facility] 08:47:00 Position: [place] Physician s Sitting BP Diastolic 2018-10-23 79 mm[Hg] Location: [place]; [facility] 08:47:00 Position: [place] Physician s Sitting Weight 2018-10-23 146.375 [lb_av] University o 08:47:00 [place] Physician s Body Mass Index 2018-10-23 26.35 kg/m2 University o f Calculated 08:47:00 [place] Physician s Heart Rate 2018-10-23 58 /min [facility] 08:47:00 [place] Physician s BP Systolic 2018-10-22 112 mm[Hg] Location: [facility]; [facility] 14:53:00 Position: [place] Physician s Sitting BP Diastolic 2018-10-22 78 mm[Hg] Location: [place]; [facility] 14:53:00 Position: [place] Physician s Sitting Weight 2018-10-22 148 [lb_av] [facility] 14:53:00 [place] Physician s Body Mass Index 2018-10-22 26.64 kg/m2 University o f Calculated 14:53:00 [place] Physician s Heart Rate 2018-10-22 67 /min [facility] 14:53:00 [place] Physician s Height 2018-10-22 62.5 [in_us] University 14:53:00 [place] Physician s BP Systolic 2018-09-24 119 mm[Hg] Location: [place]; [facility] 14:26:00 Position: [place] Physician s Sitting BP Diastolic 2018-09-24 83 mm[Hg] [place]: [facility] [facility] 14:26:00 Position: [place] Physician s Sitting Height 2018-09-24 62.5 [in_us] University of 14:26:00 [place] Physician s Weight 2018-09-24 147 [lb_av] [facility] 14:26:00 [place] Physician s Body Mass Index 2018-09-24 26.46 kg/m2 University o Calculated 14:26:00 [place] Physician s Heart Rate 2018-09-24 82 /min University of 14:26:00 [place] Physician s BP Systolic 2018-08-27 117 mm[Hg] Location: [facility]; [facility] 13:40:00 Position: [place] Physician s Sitting BP Diastolic 2018-08-27 80 mm[Hg] Location: [facility]; [facility] 13:40:00 Position: [place] Physician s Sitting Height 2018-08-27 62.5 [in_us] University 13:40:00 [place] Physician s Weight 2018-08-27 148 [lb_av] University of 13:40:00 [place] Physician s Body Mass Index 2018-08-27 26.64 kg/m2 University o f Calculated 13:40:00 [place] Physician s Heart Rate 2018-08-27 62 /min University of 13:40:00 [place] Physician s BP Systolic 2018-08-09 151 mm[Hg] Location: [facility]; [facility] 13:14:00 Position: [place] Physician s Sitting BP Diastolic 2018-08-09 91 mm[Hg] Location: [facility]; [facility] 13:14:00 Position: [place] Physician s Sitting Height 2018-08-09 62.5 [in_us] University of 13:14:00 [place] Physician s Weight 2018-08-09 143 [lb_av] University of 13:14:00 [place] Physician s Body Mass Index 2018-08-09 25.74 kg/m2 University o f Calculated 13:14:00 [place] Physician s BP Systolic 2018-04-04 129 mm[Hg] Location: [facility]; [place] of 09:59:00 Position: [place] Physician s Sitting BP Diastolic 2018-04-04 79 mm[Hg] Location: [facility]; [place] of 09:59:00 Position: [place] Physician s Sitting Height 2018-04-04 62.5 [in_us] University of 09:59:00 [place] Physician s Weight 2018-04-04 150 [lb_av] University of 09:59:00 [place] Physician s Body Mass Index 2018-04-04 27 kg/m2 University o f Calculated 09:59:00 [place] Physician s Temperature 2018-04-04 98.3 [degF] Method: Oral University of 09:59:00 [place] Physician s Heart Rate 2018-04-04 56 /min University of 09:59:00 [place] Physician s BP Systolic 2018-01-10 101 mm[Hg] Location: [facility]; [facility] 10:19:00 Position: [place] Physician s Sitting BP Diastolic 2018-01-10 68 mm[Hg] Location: [facility]; University of 10:19:00 Position: [place] Physician s Sitting Height 2018-01-10 62.5 [in_us] University of 10:19:00 [place] Physician s Weight 2018-01-10 142 [lb_av] University of 10:19:00 [place] Physician s Body Mass Index 2018-01-10 25.56 kg/m2 University o f Calculated 10:19:00 [place] Physician s Heart Rate 2018-01-10 59 /min University of 10:19:00 [place] Physician s BP Systolic 2017-12-18 115 mm[Hg] Location: [facility]; [place] of 13:59:00 Position: [place] Physician s Sitting BP Diastolic 2017-12-18 72 mm[Hg] Location: [facility]; [facility] 13:59:00 Position: [place] Physician s Sitting Weight 2017-12-18 147 [lb_av] University of 13:59:00 [place] Physician s Body Mass Index 2017-12-18 26.46 kg/m2 University o f Calculated 13:59:00 [place] Physician s Height 2017-12-18 62.5 [in_us] University of 13:59:00 [place] Physician s Temperature 2017-12-18 98.9 [degF] Method: Oral University of 13:59:00 [place] Physician s Heart Rate 2017-12-18 61 /min University of 13:59:00 [place] Physician s BP Systolic 2017-10-25 119 mm[Hg] Location: Alex; [place] [facility] 10:07:00 Position: [place] [facility] BP Diastolic 2017-10-25 72 mm[Hg] Location: Alex; [place] [facility] 10:07:00 Position: [place] [facility] Height 2017-10-25 62.5 [in_us] University of 10:07:00 [place] [facility] Weight 2017-10-25 148 [lb_av] University of 10:07:00 [place] [facility] Body Mass Index 2017-10-25 26.64 kg/m2 University o f Calculated 10:07:00 [place] [facility] Heart Rate 2017-10-25 80 /min University of 10:07:00 [place] [facility] BP Systolic 2017-08-24 120 mm[Hg] Location: Alex; [facility] 10:19:00 Position: [place] Physician s Sitting BP Diastolic 2017-08-24 59 mm[Hg] Location: MARINA; [facility] 10:19:00 Position: [place] Physician s Sitting Height 2017-08-24 62.5 [in_us] University of 10:19:00 [place] Phys[facility] Weight 2017-08-24 153.25 [lb_av] University of 10:19:00 [place] [facility] Body Mass Index 2017-08-24 27.58 kg/m2 University o f Calculated 10:19:00 [place] [facility] Heart Rate 2017-08-24 66 /min University of 10:19:00 [place] [facility] Temperature Oral 2017-07-13 97.8 F [facility] (F) 20:39:00 Height 2017-07-13 163.83 cm [facility] 20:39:00 BMI Calculated 2017-07-13 [facility] 20:39:00 Weight 2017-07-13 [facility] 20:39:00 Systolic (mm Hg) 2017-07-13 [facility] 20:39:00 Diastolic (mm Hg) 2017-07-13 [facility] 20:39:00 Heart Rate 2017-07-13 [facility] 20:39:00 BP Systolic 2017-06-20 130 mm[Hg] Location: [facility] 15:05:00 Position: [place] Physician s Sitting BP Diastolic 2017-06-20 79 mm[Hg] Location: [facility] 15:05:00 Position: [place] Physician [facility] Sitting Weight 2017-06-20 149 [lb_av] University of 15:05:00 [place] [facility] Body Mass Index 2017-06-20 26.82 kg/m2 University o f Calculated 15:05:00 [place] [facility] Height 2017-06-20 62.5 [in_us] University of 15:05:00 [place] [facility] Temperature 2017-06-20 98.4 [degF] Method: Oral University of 15:05:00 [place] [facility] Heart Rate 2017-06-20 56 /min University of 15:05:00 [place] [facility] Temperature Oral 2016-03-16 96.4 F [facility] He rmann (F) 14:30:00 Weight 2016-03-16 [facility] 14:30:00 Height 2016-03-16 [facility] 14:30:00 Respitory Rate 2016-03-16 [facility] 14:30:00 Diastolic (mm Hg) 2016-03-16 [facility] 14:30:00 Systolic (mm Hg) 2016-03-16 [facility] 14:30:00 Temperature Oral 2015-12-16 97.8 F [facility] [place] rmann (F) 14:30:00 Weight 2015-12-16 Anitra Lovett n 14:30:00 Height 2015-12-16 Anitra Lovett n 14:30:00 Respitory Rate 2015-12-16 Anitra Barillas susan 14:30:00 Diastolic (mm Hg) 2015-12-16 [facility] Sudha ermann 14:30:00 Systolic (mm Hg) 2015-12-16 [facility] [place] rmann 14:30:00 Procedures Procedure Date / Time Performing Clinician Source Performed . [facility] - 2020-03-08 00:00:00 [facility] o [facility] [place] COVID-19/SARS-Cov-2 Physicians [QL] CMP W/EGFR 2020-02-03 00:00:00 [place] [facility] [place] Physicians [QL] LIPID PANEL 2020-02-03 00:00:00 [facility] Physicians [QL] URINALYSIS, COMPLETE 2020-02-03 00:[facility] [QL] CULTURE, URINE, 2020-02-03 [facility] Physicians [UTP] Ortho - Surgery 2019-11-03 00:00:00 [facility] Scheduling Physicians [UTP] Ortho - Surgery 2019-10-01 00:00:00 [facility] Scheduling Physicians MRI Spine lumbar wo 2019-09-19 00:00:00 [facility] contrast [id number] Physicians [QL] URINALYSIS, COMPLETE 2019-08-29 00:00:00 [facility] [QL] CULTURE, URINE, 2019-08-29 00:00:00 [facility] ROUTINE Physicians EKG (In Office) 2019-08-28 00:00:00 [place] [facility] [place] Physicians [LH] CBC (without 2019-08-28 00:00:00 [facility] differential) Physicians [QLH] CMP W/EGFR 2019-08-28 00:00:00 [facility] Physicians [QL] HEMOGLOBIN A1c 2019-08-28 00:00:00 [facility] Phys[facility] [QLH] LIPID PANEL 2019-08-28 00:00:00 [facility] Physicians [QL] TSH, 3RD GENERATION 2019-08-28 [facility] [QL] URINALYSIS, COMPLETE 2019-08-28 00:00:00 [facility] W/REFLEX TO CULTURE Physicians [L] Vitamin D, 25-Hydroxy, 2019-08-28 00:00:00 [facility] Physicians [UTP] Ortho - Surgery 2019-06-30 00:00:00 [facility] Scheduling Physicians US Pelvis Transvaginal 2019-04-28 00:00:00 [facility] [id number] Physicians [QL] T4, FREE 2019-04-15 00:00:00 [place] [facility] [place] Physicians [QL] T3, TOTAL 2019-04-15 00:00:00 [place] [facility] [place] Physicians [QL] TSH, 3RD GENERATION 2019-04-15 00:00[facility]00 [facility] [QL] Thyroid Stimulating 2019-04-15 00:00:00 [facility] Immunoglobulins Physicians [QL] THYROID PEROXIDASE 2019-04-15 00:00:[address] [facility] ANTIBODIES Physicians [[facility]] THYROID PANEL 2018-11-06 00:00:00 [facility] Physicians [QL] THYROID PEROXIDASE 2018-11-06 00:00:00 [facility] ANTIBODIES Physicians [QL] URINALYSIS, COMPLETE 2018-11-06 00:00:00 U [facility] Physicians [[facility]] CULTURE, URINE, 2018-11-06 00:00:00 [facility] ROUTINE Physicians US Thyroid [id number] 2018-11-06 00:00:00 [facility] Physicians [L] Vitamin D, 25-Hydroxy, 2018-11-05 00:00:00 U [facility] Physicians [QL] CELIAC DISEASE 2018-11-05 00:00:00 [facility] COMPREHENSIVE PANEL Physicians [LH] CBC (without 2018-11-05 00:00:00 [facility] differential) Physicians [QLH] CMP W/EGFR 2018-11-05 00:00:00 [facility] Physicians [QL] HEMOGLOBIN A1c 2018-11-05 00:00:00 [facility] ity [facility] Physicians [QL] LIPID PANEL 2018-11-05 00:00:00 [facility] Physicians [QL] THYROID PANEL 2018-11-05 00:00:00 [facility] Physicians [QL] URINALYSIS, COMPLETE 2018-11-05 00:00:00 U [facility] W/REFLEX TO CULTURE Physicians [UTP] Ortho - Surgery 2018-10-15 00:00:00 [facility] Scheduling Physicians [QLH] RPR 2018-08-09 00:00:00 [facility] Physicians [QH] HIV AB, HIV 1/2, EIA, 2018-08-09 00:00:00 U [facility] WITH REFLEXES Physicians [QH] HEPATITIS B SURFACE 2018-08-09 00:00:00 [facility] ANTIGEN W/REFL CONFIRM Physician s [QLH] HEPATITIS C ANTIBODY 2018-08-09 00:00:00 U [facility] Physicians [L] DHEA-Sulfate 2018-08-09 00:00:00 [facility] Physicians [QL] TESTOSTERONE, FREE 2018-08-09 00:00:00 [facility] AND TOTAL, LC/MS/MS Physicians [QL] ESTRADIOL 2018-08-09 00:00:00 [facility] Physicians [QLH] FSH 2018-08-09 00:00:00 [facility] Physicians [QLH] LH 2018-08-09 00:00:00 [facility] Physicians [QLH] PROLACTIN 2018-08-09 00:00:00 [facility] Physicians . [facility] - PAP 2018-08-09 00:00:00 [facility] Physicians . [facility] - Affirm VPIII 2018-08-09 00:00:00 [facility] (BV Panel) Physicians MA Digital Mammo Screening 2018-08-09 00:00:00 U [facility] Keenan [id number] Physicians [QLH] URINALYSIS, COMPLETE 2018-07-22 00:00:00 U [facility] Physicians [QLH] CULTURE, URINE, 2018-07-22 00:00:00 [facility] ROUTINE Physicians [QL] VITAMIN B12 2018-07-22 00:00:00 [facility] Physicians [QL] FOLATE, SERUM 2018-07-22 00:00:00 [facility] Physicians [LH] CBC (without 2018-07-19 00:00:00 [facility] differential) Physicians [L] Vitamin D, 25-Hydroxy, 2018-07-19 00:00:00 U [facility] Physicians [QLH] CMP W/EGFR 2018-07-19 00:00:00 [facility] Physicians [[facility]] HEMOGLOBIN A1c 2018-07-19 00:00:00 Univers [facility] Physicians [[facility]] LIPID PANEL 2018-07-19 00:00:00 [facility] Physicians [[facility]] THYROID PANEL 2018-07-19 00:00:00 [facility] Physicians [QL] URINALYSIS, COMPLETE 2018-07-19 00:00:00 [facility] [[facility]] CULTURE, URINE, 2018-07-19 [facility]] URINALYSIS, COMPLETE 2017-12-18 00:00:00 U [facility] Physicians [[facility]] CULTURE, URINE, 2017-12-18 00:00:00 [facility] ROUTINE Physicians [[facility]] URINALYSIS, COMPLETE 2017-07-21 00:00:00 U [facility] Physicians [[facility]] CULTURE, URINE, 2017-07-21 00:00:00 [facility] ROUTINE Physicians [] CBC (without 2017-06-20 00:00:00 [facility] differential) Physicians [QLH] CMP W/EGFR 2017-06-20 00:00:00 [facility] Physicians [[facility]] LIPID PANEL 2017-06-20 00:00:00 [facility] Physicians [[facility]] URINALYSIS, COMPLETE 2017-06-20 00:00:00 U [facility] W/REFLEX TO CULTURE Physicians [L] Vitamin D, 25-Hydroxy, 2017-06-20 00:00:00 U [facility] Physicians [QL] HEMOGLOBIN A1c 2017-06-20 00:[facility]00 [facility] [[facility]] THYROID PANEL 2017-06-20 00:00:00 [facility] Physicians History of Breast [facility] augmentation Physicians History of Dilation and [facility] curettage Physicians History of [facility] [place] section Physicians Plan of Care Planned Activity Planned Date Details Comments Source Future Scheduled 2020-03-20 INFLUENZA VACCINE [place] [facility] Test 00:00:00 [code = INFLUENZA VACCINE] Diagnostic Test 2019-11-03 [UTP] Ortho [facility] Pending 00:00:00 Surgery Scheduling Physician s [code = [UTP] Ortho - Surgery Scheduling] Diagnostic Test 2019-11-03 [UTP] [facility] Pending 00:00:00 Surgery Scheduling Physician s [code = [UTP] Ortho - Surgery Scheduling] Diagnostic Test 2019-11-03 [UTP] [facility] Pending 00:00:00 Surgery Scheduling Physician s [code = [UTP] Ortho - Surgery Scheduling] Diagnostic Test 2019-10-01 [UTP] [facility] Pending 00:00:00 Surgery Scheduling Physician s [code = [UTP] Ortho - Surgery Scheduling] Diagnostic Test 2018-11-04 [UTP] [facility] Pending 00:00:00 Surgery Scheduling Physician s [code = [UTP] Ortho - Surgery Scheduling] Diagnostic Test 2018-10-15 [UTP] [facility] Pending 00:00:00 Surgery Scheduling Physician s [code = [UTP] Ortho - Surgery Scheduling] Future Scheduled 1996-01-26 Screening for [facility] Test 00:00:00 malignant neoplasm of cervix (procedure) [code = 626370235] Encounters Start End Encounter Admission Attending Care Care Encounter Source Date/Time Date/Time Type Type Clinicians Facility Department ID 2020-05-27 2020-05-27 BEATRICE Galvez Multis[facility]ia [id number] Univers 14:45:00 14:45:00 t; roney AVILA i ty of Preeti LERNER [facility] Dayday Pal M.D. ans 2020-04-08 2020-04-08 Outpatient Gregg [id number] 09:00:00 23:59:00 07 2020-03-25 2020-03-25 BEATRICE Moncada Psychiatry [id number] [facility] 16:00:00 16:00:00 t; CHANEL SÁNCHEZ, William i ty of Preeti BUCHANAN [facility] John Álvarez [facility] Physici ans 2020-03-09 2020-03-09 AppointBEATRICE Vega [id number] Univers 09:10:00 09:10:00 t; COAshley [facility] ans 2020-03-08 2020-03-08 AppointBEATRICE Belcher Multispecia [id number] Univers 08:00:00 08:00:00 t; roney AVILAco i ty of Preeti LERNER [facility] Dayday AVILA M.D. ans 2020-03-02 2020-03-02 [facility] [id number] Univers 17:30:00 17:30:00 t; jing AVILA M.D. [place] Day[place] AVILA M.D. ans 2020-02-03 2020-02-03 [facility] Multispecia 67 [id number] Univers 09:30:00 09:30:00 t; roney AVILAco i ty of Preeti LERNER [facility] Dayday Pal M.D. ans 2020-01-21 2020-01-21 Appointmen GONZALO [facility] Psychiatry [id number] Univers 15:30:00 15:30:00 t; CHANEL SÁNCHEZ Outpatient i ty of Preeti BUCHANAN [facility] John Álvarez [facility] Physici ans 2019-11-20 2019-11-20 [facility] [id number] Univers 08:30:00 08:30:00 t; CHANEL SÁNCHEZ ity of NILESH, M.D. [place] M.D. Physici ans 2019-11-03 2019-11-03 [facility] TATIANA [facility] Orthopedics 6 [id number] Univers 09:15:00 09:15:00 t; Jeremy LIZARRAGA M.D. [facility] 2 Dayday Blackman M.D. ans 2019-10-20 2019-10-20 AppointBEATRICE Duran Orthopedics 6 [id number] Univers 14:45:00 14:45:00 t; Jeremy LIZARRAGA M.D. [facility] 2 Dayday Blackman M.D. ans 2019-10-01 2019-10-01 AppointBEATRICE Duran [facility] 6 [id number] Univers 09:45:00 09:45:00 t; Jeremy LIZARRAGA M.D. [facility] 2 [place] Dayday LIZARRAGA M.D. ans 2019-09-24 2019-09-24 Outpatient Tatiana, [id number] 14:26:00 23:59:00 Leticia Garcia [id number] 2019-09-19 2019-09-19 Shana SIMPSON [facility] Orthopedics 6 [id number] Univers 09:15:00 09:15:00 t; Jeremy LIZARRAGA M.D. [facility] 2 [place] Dayday LIZARRAGA M.D. ans 2019-09-15 2019-09-15 [facility] [id number] Univers 08:30:00 08:30:00 t; jing LIZARRAGA M.D. [place] Dayday LIZARRAGA M.D. ans 2019-09-11 2019-09-11 Appointhumberto [facility] [id number] Univers 09:00:00 09:00:00 t; STEFANIE MCPHERSON [place] Dayday MCPHERSON CUSTOMER CARE ASSISTANT ans 2019-09-10 2019-09-10 [facility]umberto [facility] [id number] Univers 09:30:00 09:30:00 t; SKYLAR [facility] Christina M.D. [facility] Dayday Álvarez ans 2019-09-04 2019-09-04 Appointhumberto [facility] [id number] Univers 16:00:00 16:00:00 t; STEFANIE MCPHERSON [place] jenni [place] Dayday MCPHERSON CUSTOMER CARE ASSISTANT ans 2019-08-28 2019-08-28 [facility]umberto [facility] [id number] Univers 08:45:00 08:45:00 t; roney AVILA i, M.[facility]. [facility] M.D. ans 2019-08-21 2019-08-21 Appointhumberto SÁNCHEZ [facility] Multispecia [id number] Univers 14:00:00 14:00:00 t; CHANEL SÁ[place]HEZ [place], M.D. [place] John Álvarez Physici ans 2019-08-18 2019-08-18 AppointBEATRICE Duran [facility] [id number] Univers 14:00:00 14:00:00 t; jing LIZARRAGA M.D. [place] Dayday LIZARRAGA M.D. ans 2019-07-31 2019-07-31 AppointBEATRICE King Multispecia 5 [id number] Univers 16:00:00 16:00:00 t; [place], CUSTOMER CARE ASSISTANT lty - [place] [facility] [place] Physici CUSTOMER CARE ASSISTANT ans 2019-07-24 2019-07-24 Appointhumberto GALLARDO, [facility] Multispecia 5 [id number] Univers 08:00:00 08:00:00 t; [place]USTOM[place] CARE ASSISTANT lty - Rebecca it[facility] [place], Physici CUSTOMER CARE ASSISTANT ans 2019-07-23 2019-07-23 AppointBEATRICE King Multispecia 5 [id number] Univers 08:00:00 08:00:00 t; [place] CUSTOM[place] CARE ASSISTANT lty - Rebecca [facility] [place] Physici CUSTOMER CARE ASSISTANT ans 2019-07-02 2019-07-02 AppointBEATRICE King Multispecia 5 [id number] Univers 16:00:00 16:00:00 t; [place] CUSTOM[place] CARE ASSISTANT lty - Rebecca ity of SAMI [facility] [place], Physici CUSTOMER CARE ASSISTANT ans 2019-06-30 2019-06-30 AppointBEATRICE Duran [facility] 5 [id number] Univers 10:45:00 10:45:00 t; Jeremy LIZARRAGA M.D. [facility] 2 [place] Dayday LIZARRAGA M.D. ans 2019-06-25 2019-06-25 AppointBEATRICE King Multispecia 5 [id number] Univers 16:00:00 16:00:00 t; [place] CUSTOM[place] CARE ASSISTANT lty - Rebecca ity of SAMI [facility] [place], Physici CUSTOMER CARE ASSISTANT ans 2019-06-09 2019-06-09 AppointBEATRICE Colin [facility] [id number] Univers 11:10:00 11:10:00 t; Mendoza VILLAVICENCIO IRASEMA, M.D. [facility] SKYLARDayday DOUGHERTY M.D. ans 2019-06-06 2019-06-06 Appointhumberto SÁNCHEZ [facility] [id number] Univers 08:30:00 08:30:00 t; CHANEL SÁNCHEZ, ity of Preeti BUCHANAN M.D. Physici ans 2019-06-05 2019-06-05 Appointhumberto GALLARDO [facility] Multispecia 5 [id number] Univers 08:00:00 08:00:00 t; [place] CUSTOM[place] CARE ASSISTANT lty - [facility] [place], Physici CUSTOMER CARE ASSISTANT ans 2019-06-04 2019-06-04 Appointhumberto [facility] Mult[facility]pec[facility] 5 [id number] Univers 08:00:00 08:00:00 t; [place]USTOM[place] CARE ASSISTANT lty - Rebecca [facility] [place] Physici CUSTOMER CARE ASSISTANT ans 2019-05-29 2019-05-29 [facility] Mult[facility]pecia 5 [id number] Univers 08:00:00 08:00:00 t; [place]USTOM[place] CARE ASSISTANT lty - Rebecca it[facility] [place] Physici CUSTOMER CARE ASSISTANT ans 2019-05-26 2019-05-26 AppointBEATRICE Duran [facility] 5 [id number] Univers 09:15:00 09:15:00 t; LETICIA, - Sugar angeloy sara SIMPSON M.D. [place] as LETICIA, 2 Dayday Álvarez ans 2019-05-21 2019-05-21 Appointhumberto [facility] Mult[facility]pecia 5 [id number] Univers 08:00:00 08:00:00 t; [place]USTOM[place] CARE ASS[place]ANT lty - Rebecca ity of [facility] [place], Physici CUSTOMER CARE ASSISTANT ans 2019-05-14 2019-05-14 Appointhumberto [facility] [id number] Univers 09:00:00 09:00:00 t; [place] CUSTOMER CARE ASS[place] of [place], [place], Physici CUSTOMER CARE ASSISTANT ans 2019-05-08 2019-05-08 MARIBEL Bello 28 [id number] 07:24:00 23:59:00 Skylar 05 Deidre 2019-04-28 2019-04-28 Appointmen IRASEMA, BEATRICE Women's [id number] Univers 14:00:00 14:00:00 t; [facility] Preeti KHAN [facility] Dayday Dailey. ans 2019-04-16 2019-04-16 Appointmen BEATRICE GALLARDO Multispecia 5 [id number] Univers 08:00:00 08:00:00 t; [place]USTOM[place] CARE ASSISTANT lty - Rebecca ity of [facility] [place], Physici CUSTOMER CARE ASSISTANT ans 2019-04-15 2019-04-15 Appointmen BEATRICE COTA Multispecia [id number] Univers 08:00:00 08:00:00 t; MELY COTA, lty - Rebecca ity of Preeti BOONE [facility] Preeti Physici ans 2019-04-10 2019-04-10 Appointmen BEATRICE SÁNCHEZ [facility] [id number] Univers 16:00:00 16:00:00 t; CHANEL SÁNCHEZ, ity of Preeti BUCHANAN [place] Preeti Physici ans 2019-04-09 2019-04-09 Appointmen BEATRICE GALLARDO [facility] [id number] Univers 08:00:00 08:00:00 t; [place] CUSTOMER CARE ASS[place], [place], Physici CUSTOMER CARE ASSISTANT ans 2019-04-04 2019-04-04 Appointmen BEATRICE GALLARDO Multispecia 5 [id number] Univers 10:00:00 10:00:00 t; [place]USTOM[place] CARE ASSISTANT lty - [facility] [place]ici CUSTOMER CARE ASSISTANT ans 2019-02-26 2019-02-26 Appointmen BEATRICE GALLARDO Multispecia 5 [id number] Univers 08:00:00 08:00:00 t; [place]USTOM[place] CARE ASSISTANT lty - Rebecca ity of [facility] [place] Physici CUSTOMER CARE ASSISTANT ans 2019-02-21 2019-02-21 Appointmen BEATRICE GALLARDO Multispecia 5 [id number] Univers 08:00:00 08:00:00 t; [place]USTOM[place] CARE ASSISTANT lty - Rebecca ity of [facility] [place]ici CUSTOMER CARE ASSISTANT ans 2019-02-14 2019-02-14 Appointmen SAMI [facility] Multispecia 5 [id number] Univers 08:00:00 08:00:00 t; [place]USTOM[place] CARE ASSISTANT lty - Rebecca ity of SAMI, [facility] [place]ici CUSTOMER CARE ASSISTANT ans 2019-01-30 2019-01-30 Appointmen SAMI [facility] Multispecia 5 [id number] Univers 08:00:00 08:00:00 t; [place]USTOM[place] CARE ASSISTANT lty - Rebecca ity of SAMI, [facility] [place]ici CUSTOMER CARE ASSISTANT ans 2019-01-23 2019-01-23 Appointmen [facility] Mult[facility] 5 [id number] Univers 08:00:00 08:00:00 t; [place]UST[place] CARE ASSISTANT lty - Rebecca ity of [facility] [place]ici CUSTOMER CARE ASSISTANT ans 2019-01-16 2019-01-16 Appointmen SAMI [facility] 5 [id number] Univers 08:00:00 08:00:00 t; [place]USTOM[place] CARE ASS[place] of [place] Physici CUSTOMER CARE ASSISTANT ans 2018-12-27 2018-12-27 Appointmen GON[facility]ALO [facility] Psychiatry [id number] Univers 08:00:00 08:00:00 t; CHANEL SÁNCHEZ, ity of Preeti BUCHANAN [place] Preeti Physici ans 2018-12-19 2018-12-19 Appointmen SAMI [place] [id number] Univers 16:00:00 16:00:00 t; [place] CUSTOMER CARE ASS[place] it y of [place] G[place]ARDO [place] Physici CUSTOMER CARE ASSISTANT ans 2018-12-12 2018-12-12 Appointmen [place] [address] [id number] Univers 16:00:00 16:00:00 t; [place] CUSTOM[place] CARE ASS[place] it y of SAMIJohn [place] Physici CUSTOMER CARE ASSISTANT ans 2018-12-05 2018-12-05 Appointmen SAMI [facility] 5 [id number] Univers 16:00:00 16:00:00 t; [place] CUSTOM[place] CARE ASS[place] CUSTOMER CARE ASSISTANT ans 2018-11-28 2018-11-28 Appointmen [facility] 5 [id number] Univers 16:00:00 16:00:00 t; [place] CUSTOMER CARE ASS[place] of [place] Physici CUSTOMER CARE ASSISTANT ans 2018-11-21 2018-11-21 [facility] 5 [id number] Univers 16:00:00 16:00:00 t; [place]USTOM[place] CARE ASS[place] of [place] Physici CUSTOMER CARE ASSISTANT ans 2018-11-19 2018-11-19 William Lerner, [id number] 07:57:00 23:59:00 [place] [id number] Khozani [id number] 2018-11-18 2018-11-18 Appointhumberto SIMPSON [facility] Orthopedics 5 [id number] Univers 09:15:00 09:15:00 t; jing LIZARRAGA M.D. [place] Dayday LIZARRAGA M.D. ans 2018-11-14 2018-11-14 Appointhumberto [facility] 5 [id number] Univers 14:00:00 14:00:00 t; [place] CUSTOM[place] CARE ASS[place] Physici CUSTOMER CARE ASSISTANT ans 2018-11-05 2018-11-05 Appointhumberto LERNER, [facility] [id number] Univers 10:30:00 10:30:00 t; jing AVILA M.D. [place] Dayday AVILA M.D. ans 2018-11-04 2018-11-04 Shana SIMPSON [facility] [id number] Univers 13:00:00 13:00:00 t; jing LIZARRAGA M.D. [place] Dayday LIZARRAGA M.D. ans 2018-10-24 2018-10-24 Shana SÁNCHEZ [facility] [id number] Univers 16:00:00 16:00:00 t; CHANEL SÁNCHEZ ity of NILESH, M.D. [place] KaeD. Physici ans 2018-10-23 2018-10-23 BEATRICE Moncada Psychiatry [id number] Univers 08:30:00 08:30:00 t; CHANEL SÁNCHEZ ity of NILESH, M.D. [place] M.D. Physici ans 2018-10-22 2018-10-22 BEATRICE Stack [facility] [id number] Univers 14:15:00 14:15:00 t; [facility] KHAN M.D. [facility] Dayday Álvarez ans 2018-10-14 2018-10-14 BEATRICE [facility] 4 [id number] Univers 10:45:00 10:45:00 t; jing LIZARRAGA M.D. [place] Dayday LIZARRAGA M.D. ans 2018-09-24 2018-09-24 BEATRICE Stack [facility] [id number] Univers 14:00:00 14:00:00 t; [facility] jing KHAN M.D. [facility] Dayday Álvarez ans 2018-09-12 2018-09-12 BEATRICE Moncada [facility] [id number] Univers 15:30:00 15:30:00 t; CHANEL S[facility]NCHEZ [facility] [place], M.D. [place] M.D. Physici ans 2018-08-27 2018-08-27 DENISA Bello28 [id number] 12:19:00 23:59:00 Skylar Jiang 2018-08-27 2018-08-27 BEATRICE Stack [facility] [id number] Univers 15:00:00 15:00:00 t; [facility] jing KHAN M.D. [facility] Dayday Álvarez ans 2018-08-09 2018-08-09 BEATRICE Stack [facility] [id number] Univers 13:00:00 13:00:00 t; [facility] jing KHAN M.D. [facility] Dayday Álvarez ans 2018-05-27 2018-05-27 BEATRICE Conway UTP [id number] Univers 10:00:00 10:00:00 t; JEOVANNY, LAUREN, it y of LAUREN, [facility] ans 2018-05-20 2018-05-20 Appointmen JEOVANNY, UTP UTP [id number] Univers 08:00:00 08:00:00 t; JEOVANNY, LAUREN, it y of LAUREN, [facility] ans 2018-05-13 2018-05-13 Appointhumberto LERNERA, UTP UTP [id number] Univers 08:00:00 08:00:00 t; JEOVANNY, LAUREN, it y of LAUREN, [facility] ans 2018-05-06 2018-05-06 Appointhumberto LERNERA, UTP UTP [id number] Univers 11:00:00 11:00:00 t; JEOVANNY, LAUREN, it y of LAUREN, [facility] ans 2018-04-25 2018-04-25 Shana UP, UTP UTP [id number] Univers 08:00:00 08:00:00 t; JEOVANNY, LAUREN, it y of LAUREN, [facility] ans 2018-04-04 2018-04-04 Shana SÁNCHEZ, [facility] [id number] Univers 09:30:00 09:30:00 t; CHANEL SÁNCHEZ, Adan M.D. [place] [facility] ans 2018-03-27 2018-03-27 Shana UP, UTP UTP [id number] Univers 15:00:00 15:00:00 t; JEOVANNY, LAUREN, it y of LAUREN, [facility] ans 2018-03-15 2018-03-15 Shana SÁNCHEZ, UTP [facility] [id number] Univers 09:30:00 09:30:00 t; CHANEL SÁNCHEZ, Adan M.D. [place] [facility] ans 2018-03-12 2018-03-12 Shana UP, [facility] [id number] Univers 15:00:00 15:00:00 t; JEOVANNY, LAUREN, Health and ity of LAUREN, [facility] Wellness [facility] s [facility] Center - Physici Orozco ans 2018-03-05 2018-03-05 Appointhumberto HERNÁNDEZ, [facility] [id number] Univers 14:30:00 14:30:00 t; LINDSAY HERNÁNDEZ M.D. ity of TONY, M.D. [place] [facility] ans 2018-02-26 2018-02-26 Nilshumberto JEOVANNY, [facility] [id number] Univers 15:00:00 15:00:00 t; JEOVANNY, LAUREN, Health and ity of LAUREN, [facility] [place] [facility] Center - Physici [place] ans 2018-02-18 2018-02-18 Nilshumberto JEOVANNY, [facility] [id number] Univers 09:00:00 09:00:00 t; JEOVANNY, LAUREN, Health and ity of LAUREN, [facility] Wellness [facility] Center - Physici Orozco ans 2018-01-29 2018-01-29 [facility] [id number] Univers 10:00:00 10:00:00 t; jing LIZARRAGA M.D. [place] [facility] LIZARRAGA M.D. ans 2018-01-15 2018-01-15 [facility] [id number] Univers 11:30:00 11:30:00 t; jing LIZARRAGA M.D. [place] [facility] LIZARRAGA M.D. ans 2018-01-10 2018-01-10 Shana SÁNCHEZ [facility] [id number] Univers 10:00:00 10:00:00 t; HCANEL SÁNCHEZ ity of NILESH, M.D. [place] M.D. Physici ans 2017-12-19 2017-12-19 [facility] [id number] Univers 08:00:00 08:00:00 t; JEOVANNYJOSE JUANLAUREN, Health and ity of LAUREN, [facility] Wellness [facility] Center - Physici Orozco ans 2017-12-18 2017-12-18 Shana LERNER [place] [id number] Univers 13:30:00 13:30:00 t; AUSTINjing ZAMARRIPA M.D. [place] [facility] AVILA M.D. [facility] 2017-12-18 2017-12-18 Shana SIMPSON, [facility] [id number] Univers 10:00:00 10:00:00 t; jing LIZARRAGA M.D. [place] [facility] LIZARRAGA M.D. [facility] 2017-12-12 2017-12-12 Shana UP [facility] [id number] Univers 08:00:00 08:00:00 t; LAUREN UP, Health and ity of LAUREN, [facility] Wellness [facility] 2017-12-04 2017-12-04 Shana SIMPSON, [facility] [id number] Univers 11:30:00 11:30:00 t; jing LIZARRAGA M.D. [place] [facility] LIZARRAGA M.D. [facility] 2017-10-31 2017-10-31 Shana UP, [facility] [id number] Univers 08:00:00 08:00:00 t; LAUREN UP, it y of LAUREN, [facility] ans 2017-10-25 2017-10-25 Shana SÁNCHEZ [facility] [id number] Univers 10:00:00 10:00:00 t; CHANEL SÁNCHEZ ity of NILESH, M.D. [place] [facility] ans 2017-09-19 2017-10-18 Outpatient Wes, [id number] . [id number] 11:00:00 23:59:00 Ministerio [id number] Avi [id number] 2017-10-18 2017-10-18 [facility] [id number] Univers 08:00:00 08:00:00 t; LAUREN UP, Health and ity of LAUREN, [facility] Wellness [facility] 2017-10-16 2017-10-16 Shana SIMPSON [facility] 3 [id number] Univers 10:00:00 10:00:00 t; jing LIZARRAGA M.D. [place] [facility] LIZARRAGA M.D. ans 2017-10-11 2017-10-11 Shana UP, [facility] [id number] Univers 08:00:00 08:00:00 t; JEOVANNY, LAUREN, Health and ity of LAUREN, [facility] [place] [facility] ans 2017-10-04 2017-10-04 Shana UP [facility] [id number] Univers 08:00:00 08:00:00 t; JEOVANNY, LAUREN, Health and ity of LAUREN, [facility] [place] [facility] - Physici [place] ans 2017-10-02 2017-10-02 [facility] [id number] Univers 11:45:00 11:45:00 t; jing LIZARRAGA M.D. [place] [facility] LIZARRAGA M.D. ans 2017-09-27 2017-09-27 Nilshumberto [facility] [id number] Univers 09:00:00 09:00:00 t; JEOVANNY, LAUREN, Health and ity of LAUREN, [facility] [place] [facility] ans 2017-09-20 2017-09-20 Nilshumberto [facility] [id number] Univers 08:00:00 08:00:00 t; JEOVANNY, LAUREN, Health and ity of LAUREN, [facility] [place] [facility] ans 2017-09-18 2017-09-18 [facility] [id number] Univers 09:15:00 09:15:00 t; jing LIZARRAGA M.D. [place] [facility] LIZARRAGA M.D. ans 2017-09-13 2017-09-13 [facility] [id number] Univers 14:45:00 14:45:00 t; jing HERZOG M.D. [place] [facility] HERZOG M.D. ans 2017-09-10 2017-09-10 Shana HARVEY [facility] [id number] Univers 11:15:00 11:15:00 t; jing HERZOG M.D. [place] [facility] HERZOG M.D. ans 2017-09-05 2017-09-05 Appointhumberto UP, [facility] [id number] Univers 13:00:00 13:00:00 t; LAUREN UP, it y of LAUREN, [facility] Phys[facility] ans 2017-08-30 2017-08-30 AppointBEATRICE [place] [id number] Univers 11:00:00 11:00:00 t; AVELINO ALEJANDRO, it y of AVELINO, [facility] ans 2017-08-24 2017-08-24 Appointhumberto SÁNCHEZ, BEATRICE UTP [id number] Univers 10:00:00 10:00:00 t; CHANEL SÁNCHEZ ity of NILESH, M.D. [place] M.D. Physici ans 2017-07-13 2017-07-13 Outpatient TORI Hernández [facility] [id number] 14:30:00 23:59:59 Ty 00 2017-06-20 2017-06-20 Shana LERNER, BEATRICE UTP [id number] Univers 15:15:00 15:15:00 t; jing AVILA M.D. [place] [facility] AVILA M.D. ans 2017-02-28 2017-02-28 Outpatient Kwan, MH28 28 [id number] 10:17:00 23:59:00 Olya Nelson 2016-05-12 2016-05-12 [facility] [id number] [facility]Clinic 17:46:00 17:46:00 [facility] 2016-04-04 2016-04-04 Outpatient [facility] [id number] eClinic 15:43:00 15:43:00 [facility] 2016-04-04 2016-04-04 Outpatient [facility] [id number] eClinic 08:11:00 08:11:00 [facility] 2016-04-03 2016-04-03 Outpatient [facility] [id number] eClinic 14:06:00 14:06:00 [facility] 2016-03-17 2016-03-17 Outpatient [facility] [id number] eClinic 15:12:00 15:12:00 [facility] 2016-03-17 2016-03-17 Outpatient [facility] [id number] eClinic 08:45:00 08:45:00 [facility] 2016-03-16 2016-03-16 Outpatient [facility] [id number] eClinic 09:30:00 09:30:00 [facility] 2016-03-16 2016-03-16 Outpatient [facility] [id number] eClinic 09:30:00 09:30:00 [facility] 2016-02-01 2016-02-01 Appointmen BEATRICE BOWLING [facility] [id number] [facility] 09:30:00 09:30:00 t; jing DUNAWAY Preeti BOWLING [place] [facility] DUNAWAY M.D. [facility] 2016-02-01 2016-02-01 Outpatient [facility] [id number] eClinic 08:59:00 08:59:00 [facility] 2015-12-16 2015-12-16 Outpatient [facility] [id number] eClinic 09:30:00 09:30:00 [facility] 2015-02-25 2015-02-25 Outpatient KIRBY Abdi [facility] [id number] 14:36:00 23:59:00 Ewelina Katie Elizabeth Results Test Description Test Time Test Comments Results Result Comments Source . [facility] - COVID-19/SARS-Cov-2 2020-03-08 00:00:00 Test Item Value Reference Range Interpretation Comme nts SARS-CoV-2 REPORT (test code = ClinicalHistory: Z20.828 Close expos ure to N SARS-CoV-2 REPORT) COVID-19 virus.COVID-19/SARS-CoV-2: COVID-19/SARS-CoV-2: Negative.BodySite: Nasopharyngeal.Special Requests: COVID-19/SARS-Cov-2.CPTCode: 93006.ICDCode: Z20.828. [facility][QL] LIPID [id number] 08:45:00 Test Item Value Reference Range Interpretation Comments CHOLESTEROL, TOTAL; 240 mg/dl <200 Above High Threshold (test code = 2093-3) HDL CHOLESTEROL; 61 mg/dl > OR = 50 N Normal (test code = 2085-9) TRIGLYCERIDES; 93 mg/dl <150 N Normal (test code = 2571-8) LDL-CHOLESTEROL; 159 {MG/DL Reference r eral: Above High Threshold VERNA} <100 De sirable range (test code = <100 mg/[place] [address]-0) primary prevent ion; <70 mg/dL for patients with C HD or diabetic patien ts with > or = 2 C HD risk factors. L DL-C is now calculat ed using the Babs calculation, wh ich is a validated novel method providin g better accuracy than the Friedewald equation in the estimation of L DL-C. Donald SS et al . GUSTAVO. 2013;310( 19): 6325-0680 (http://educati on.HobbyTalk. ClassLink/f aq/[email or web address]) CHOL/HDLC RATIO 3.9 {CALC} <5.0 N (test code = CHOL/HDLC RATIO) NON HDL CHOLESTEROL 179 {MG/DL <130 For mirella ents with (test code = NON HDL VERNA} diabete s plus 1 CHOLESTEROL) major ASCVD ris k factor, treatin g to a non-HDL-C goa l of <100 mg/dL (LDL -C of <70 mg/dL) is considered a therapeutic opt ion. [facility][QL] CMP [id number] 08:45:00 Test Item Value Reference Range Interpretation Comments GLUCOSE; Normal 77 mg/dl 65-99 N Fasting refe rence (test code = 1547-9) interva l UREA NITROGEN (BUN) 17 mg/dl 7-25 N (test code = UREA NITROGEN (BUN)) CREATININE (test 0.72 mg/dl 0.50-1.10 N code = CREATININE) eGFR NON-AFR. 101 {ML/MIN/1.7} > OR = 60 N WALLISIAN (test code = eGFR NON-AFR. WALLISIAN) eGFR 117 {ML/MIN/1.7} > OR = 60 N WALLISIAN (test code = eGFR ) BUN/CREATININE RATIO NOT APPLICABLE 6-22 (test code = BUN/CREATININE RATIO) SODIUM (test code = 142 mmol/L 135-146 N SODIUM) POTASSIUM (test code 4.5 mmol/L 3.5-5.3 N = POTASSIUM) CHLORIDE (test code 107 mmol/L 98-110 N = CHLORIDE) CARBON DIOXIDE (test 28 mmol/L 20-32 N code = CARBON DIOXIDE) CALCIUM (test code = 9.6 mg/dl 8.6-10.2 N CALCIUM) PROTEIN, TOTAL (test 7.1 g/dl 6.1-8.1 N code = PROTEIN, TOTAL) ALBUMIN (test code = 4.4 g/dl 3.6-5.1 N ALBUMIN) GLOBULIN (test code 2.7 {G/DL CALC} 1.9-3.7 N = GLOBULIN) ALBUMIN/GLOBULIN 1.6 {CALC} 1.0-2.5 N RATIO (test code = ALBUMIN/GLOBULIN RATIO) BILIRUBIN, TOTAL; 0.3 mg/dl 0.2-1.2 N Normal (test code = 83739-9) ALKALINE PHOSPHATASE 65 u/l 31-125 N (test code = ALKALINE PHOSPHATASE) AST; Normal (test 24 u/l 10-35 N code = 1916-6) ALT; Normal (test 27 u/l 6-29 N code = 1742-6) [facility][] URINALYSIS, [id number] 08:45:00 Test Item Value Reference Range Interpretation Comments COLOR; Normal (test code = 5778-6) YELLOW YELLOW N APPEARANCE (test code = APPEARANCE) CLEAR CLEAR N SPECIFIC GRAVITY; Normal (test code 1.022 1.001-1.035 N = 2965-2) PH; Normal (test code = 2756-5) 5.5 5.0-8.0 N GLUCOSE; Normal (test code = NEGATIVE NEGATIVE N 1547-9) BILIRUBIN; Normal (test code = NEGATIVE NEGATIVE N 87248-0) KETONES; Normal (test code = NEGATIVE NEGATIVE N 85277-4) OCCULT BLOOD; Abnormal (test code = TRACE NEGATIVE A 46272-2) PROTEIN; Normal (test code = NEGATIVE NEGATIVE N 20014-7) NITRITE; Normal (test code = NEGATIVE NEGATIVE N 07151-5) LEUKOCYTE ESTERASE (test code = NEGATIVE NEGATIVE N LEUKOCYTE ESTERASE) WBC; Normal (test code = 6690-2) NONE SEEN < OR = 5 N RBC; Abnormal (test code = 789-8) 3-10 < OR = 2 A SQUAMOUS EPITHELIAL CELLS; Normal NONE SEEN < OR = 5 N (test code = 80653-4) BACTERIA; Normal (test code = NONE SEEN NONE SEEN N 630-4) HYALINE CAST; Normal (test code = NONE SEEN NONE SEEN N 55805-4) [facility][QL] CULTURE, URINE, [id number] 08:45:00 Test Item Value Reference Range Interpretation Comments CULTURE (test code = See Comment CULTURE , URINE, CULTURE) ROUTINE Mandeep ro Number: [id number] Test Status: Final Specimen Source: URINE Specimen Qualit y: Adequate Resul t: [facility] [id number] 15:05:00PROCEDURE INFORMATION:Exam: MR Lumbar Spine Without Contrast.Exam date and time: 09/24/2019 3:08 PMAge: 44 years oldClinical indication: Other intervertebral disc degeneration, lumbar region;Radiculopathy, lumbar region; Additional info: /m54.16 radiculopathy, lumbarregion, m51.36 other intervertebral disc degeneration, lumbar regionTECHNIQUE:Imaging protocol: Multiplanar magnetic resonance images of the lumbar spinewithout intravenous contrast.COMPARISON:No relevant prior studies available.FINDINGS:Vertebrae: There is no compression fracture deformity. There is a grade 1/2anterolisthesis at L4-L5. There is no spondylolysis.Spinal cord: The conus medularis is normally postioned and there is nointrathecal mass.L1-L2: No significant disc disease. No significant spinal canal stenosis. Noneural foraminal stenosis.L2-L3: No significant disc disease. No significant spinal canal stenosis. Noneural abhishek inal stenosis.L3-L4: At the L3-L4 disc space there is a 2 mm bulging annulus with a leftlateral annular fissure without central or foraminal stenosis.L4-L5: At the L4-L5 disc space which is desiccated,there is a grade 1/2, 5 mmanterolisthesis and bulging annulus. There is degenerative change of facetj oints without spondylolysis. Hypertrophic ligamentum flavum and a 3 mmsynovial cyst arising from themedial aspect of right facet joint contributesto minimal to moderate right lateral recess stenosis. There is no central canalstenosis. There are small bilateral dorsal inferior synovial cysts.L5-S1: No significant disc disease. No significant spinal canal stenosis. Noneural foraminal stenosis.Soft tissues: The psoas and spinae erectae muscles are normal. The pariallyvisualized sacral iliac joints are normal.IMPRESSION: At the L4-L5 disc space which is desiccated, there is a grade 1/2,5 mm anterolisthesis and bulging annulus. There is degenerative change of facetjoints without spondylolysis. Hypertrophic ligamentum flavum and a 3 mmsynovial cyst arising from the medial aspect of right facet joint contributesto minimal to moderate right lateral recess stenosis. There is no central canalstenosis. There are small bilateral dorsal inferior synovial cysts.Nelson Isabel MD On 09/24/2019 16:04:40; VR -[id number] by: Nelson Isabel MDDictated Date/time: 09/24/19 16:04Electronically Signed by: Nelson Isabel MD 09/24/2015:04FINAL REPORTUnLogan [facility][] CBC (without differential)2019-08-28 09:42:01 Test Item Value Reference Range Interpretation Comments WBC (test code = 6690-2) 6.5 {K/CMM} 3.7-10.4 RBC (test code = 789-8) 4.41 {M/CMM} 4.20-5.40 Hgb (test code = 718-7) 13.9 g/dl 12.0-16.0 Hct (test code = 75482-1) 42.8 % 36.0-48.0 MCV (test code = 787-2) 97.2 fL 80.0-98.0 MCH; Above High Threshold (test 31.5 pg 27.0-31.0 code = 785-6) MCHC (test code = 786-4) 32.4 g/dl 32.0-36.0 RDW (test code = 788-0) 13.7 % 11.5-14.5 Platelet (test code = 89551-9) 241 {K/CMM} 133-450 Mean Platelet Volume (test code 9.1 fL 7.4-10.4 = 93333-5) [facility]] URINALYSIS, COMPLETE W/REFLEX TO CULTURE 2019-08-28 09:42:01 Test Item Value Reference Range Interpretation Comments UA Turbidity; Abnormal (test code Slight Clear A = 95450-0) UA Spec Grav (test code = 5810-7) 1.020 <=1.030 UA pH (test code = 5803-2) 6.0 5.0-8.0 UA Protein (test code = 41752-3) Negative Negative UA Glucose (test code = 49451-0) Negative Negative UA Ketones (test code = 98089-3) Negative Negative UA Bili (test code = 5770-3) Negative Negative UA Blood; Abnormal (test code = Small Negative A 5794-3) UA Nitrite (test code = 5802-4) Negative Negative UA Leuk Est (test code = 5799-2) Negative Negative UA RBC; Above High Threshold (test 10 {/HPF} 0-2 code = 35972-5) UA WBC (test code = 72194-0) 1 {/HPF} 0-5 UA Mucus (test code = 8247-9) Few None Seen UA Sq Epi (test code = 21009-2) Occasional Few UA Color (test code = 5778-6) Yellow UROBILINOGEN (test code = 66634-2) <=1.0 0.1-1.[address] [facility]] CMP [id number] 09:42:01 Test Item Value Reference Range Interpretation Comments Sodium Level 140 {mEq/l} 135-145 (test code = 2951-2) Potassium Level 4.0 {mEq/l} 3.5-5.1 (test code = 2823-3) Chloride Level 103 {mEq/l} 95-109 (test code = 5-0) Carbon Dioxide 28 {mEq/l} 24-32 (test code = 2027-9) AGAP (test code = 13.0 {mEq/l} 10.0-20.0 19355-7) Glucose Lvl (test 77 mg/dl 70-99 Adult refe rence range code = 2345-7) values reflec t the clinical guidel inesof the [place] Diabet es Association. Creatinine Lvl 0.70 mg/dl 0.50-1.40 (test code = 2160-0) Blood Urea 13 mg/dl 7-22 Nitrogen (test code = 3094-0) BUN/Creatinine 19 6-25 Ratio (test code = 3097-3) Total Protein 7.6 g/dl 6.4-8.4 (test code = 2885-2) Albumin Lvl (test 4.3 g/dl 3.5-5.0 code = 1751-7) Globulin (test 3.3 g/dl 2.7-4.2 code = 53311-2) A/G Ratio (test 1.3 0.7-1.6 code = 1759-0) Calcium Level 9.2 mg/dl 8.5-10.5 Total (test code = 54458-1) ALT (test code = 24 u/l 0-65 1743-4) AST (test code = 21 u/l 0-37 12700-9) Bili Total (test 0.5 mg/dl 0.2-1.3 code = 1975-2) Alk Phos (test 57 u/l 39-136 The pediatric reference code = 1783-0) ranges for th is test represent a CLSI-basedtrans ference of the CALIPER ronny abase of pediatric refer ence intervals to eSiemens Stratton analyzer (Clinical Biochemistry 46 (2013): 5494-7468). [facility] has not internally validated these reference ranges and therefore they should be used only in th e context of a thoroughcl inical assessment. eGFR (test code = 106 The eGFR i s calculated 38516-2) {ML/MIN/1.7} using the CKD-E PI formula. In mos t young, healthyindividu als the eGFR will be >9 0 mL/min/1.73m2. The eGFR declines with a ge. AneGFR of 60-89 may be normal in some population s, particularly th e elderly, forwhom the CKD -EPI formula has not been extensively kelin idated. Use of the eGFR isnot recommended in the following populations:Ind ividuals with unstable c reatinine concentrations, including patient s and those with seri ous co-morbid conditions.Mirella ents with extremes in mus nikki mass or diet.The ronny a above are obtained fr om the National Kidney Disease Education Progr am(NKDEP) which additiona lly recommends that when the eGFR is used in patientswith ex tremes of body mass index for purposes of lorie g dosing, the eGFR should be multiplied by t he estimated BMI. [facility]] LIPID [id number] 09:42:01 Test Item Value Reference Range Interpretation Comments Chol; Above High Threshold (test 272 mg/dl <=199 code = 2093-3) Trig (test code = 2571-8) 126 mg/dl <=149 HDL Cholesterol (test code = 86 mg/dl >=61 2085-9) CHD Risk; Below Low Threshold (test 3.16 3.90-5.80 code = 67250-3) LDL; Above High Threshold (test 161 mg/dl <=99 code = 93855-7) VLDL (test code = VLDL) 25 [facility]] TSH, 3RD [id number] 09:42:01 Test Item Value Reference Range Interpretation Comments TSH (test code = 00967-0) 2.050 {uIU/ml} 0.360-3.740 [facility]] HEMOGLOBIN [id number] 09:42:01 Test Item Value Reference Range Interpretation Comments Hemoglobin A1c (test code = 4548-4) 5.2 % <=5.6 [facility]] VITAMIN D, 25-HYDROXY, [id number] 09:42:01 Test Item Value Reference Range Interpretation Comments Vitamin D, 25-OH, 57.9 ng/ml 30.0-100.0 Reference range is based Total (test code on recommen dations in the = Vitamin D, EndocrineSociet y Clinical 25-OH, Total) Practice Guide line (J Clin Endocrinol Ymhmx1529;96:19 11-1930) [facility][O] Urine Test (in office)2019-06-09 11:40:00 Test Item Value Reference Range Interpretation Comments Test, Urine; Normal (test negative N code = 2106-3) [facility]. [facility] - Surgical [id number] 00:00:00 Test Item Value Reference Range Interpretation Comments Surgical Biopsy REPORT (test code See Comment = Surgical Biopsy REPORT) [facility] Pelvis Transvaginal [id number] 07:30:00 Procedure: Pelvic Ultrasound.Clinical Indication: Abnormal uterine bleeding.Comparison: None.TRANSABDOMINAL SCAN: Not performed.TRANSVAGINAL SCAN: Endovaginal ultrasound was performed to try and betterevaluate the endometrial stripe and adnexal regions. The uterus measures 7.8 x4.3 x 3.9 cm and demons trates a 4 mm endometrial stripe. The right ovary wasnot seen secondary to overlying bowel gas. The left ovary measures 2.5 x 1.8 x1.1 cm and demonstrates a 1.6 cm dominant follicle. Blood flow is observedwithin the left ovary. The visualized adnexa are maintained.IMPRESSION:1. Dominant follicle involving the left ovary.2. Nonvisualization of the right ovary.SL:[id number] by: Saad Beach MDDictated Date/time: 05/08/19 08:24Electronically Signed by: Saad Beach MD 05/08/1908:26FINAL REPORT [facility]] Thyroid Stimulating Immunoglobulins 2019-04-24 08:12:01 Test Item Value Reference Range Interpretation Comments Thyroid Stimulating <0.10 In healt hy individuals, a Immunoglobulins (test TSI va lue of < 0.10 IU/L code = Thyroid is expected. The Stimulating assaymanufactur er Immunoglobulins) (Siemens) h as determined that a cutpoint of 0.55 IU/L mostaccura tely distinguishes hyperthyroid Gr aves disease patient s from those withother thyroid or autoimmune d isease. [facility]] T3, [id number] 08:12:01 Test Item Value Reference Range Interpretation Comments T3 Total (test code = 3053-6) 0.95 ng/ml 0.60-1.81 [facility]] THYROID PEROXIDASE [id number] 08:12:01 Test Item Value Reference Range Interpretation Comments Thyroid Peroxidase (TPO) Antibody 33 {IU/ml} <=60 (test code = 38454-6) [facility]] T4, [id number] 08:12:01 Test Item Value Reference Range Interpretation Comments T4 Free (test code = 3024-7) 0.89 ng/dl 0.76-1.46 [facility] TSH, 3RD [id number] 08:12:01 Test Item Value Reference Range Interpretation Comments TSH (test code = 71613-6) 1.600 {uIU/ml} 0.360-3.740 [facility] [id number] 08:13:00PROCEDURE: THYROID ULTRASOUNDINDICATION: HyperthyroidismCOMPARISON: None.TECHNIQUE: Sonographic evaluation of the thyroid gland is performed using highresolution B- mode and supplemental Doppler imaging.FINDINGS:The right lobe measures 4.6 x 1.4 x 1.7 cmThe left lobe measures 4.4 x 1.3 x 1.2 cmThe isthmus is normal.The right and left lobes are normal in contour and echogenicity.There is a tiny anechoic nodule in the inferior left thyroid lobe measuring 0.3x 0.2 x 0.37 cm likely colloid cyst. Small echogenic focus noted. No solidnodules identified.IMPRESSION: Tiny cystic left thyroid nodule likely colloid cyst. Otherwiseunremarkable sonographic appearance of the thyroidLocation: CN-M--Read by: Kyree Ignacio MDDictated Date/time: 11/19/18 09:00Electronically Signed by: Kyree Ignacio 11/19/1908:02FINAL REPORTUnLog[facility][] CBC (without differential)2018-11-05 10:43:01 Test Item Value Reference Range Interpretation Comments WBC (test code = 6690-2) 6.0 {K/CMM} 3.7-10.4 RBC (test code = 789-8) 4.54 {M/CMM} 4.20-5.40 Hgb (test code = 718-7) 14.3 g/dl 12.0-16.0 Hct (test code = 04852-4) 44.4 % 36.0-48.0 MCV (test code = 787-2) 97.7 fL 80.0-98.0 MCH; Above High Threshold (test 31.5 pg 27.0-31.0 code = 785-6) MCHC (test code = 786-4) 32.3 g/dl 32.0-36.0 RDW (test code = 788-0) 13.3 % 11.5-14.5 Platelet (test code = 82402-9) 217 {K/CMM} 133-450 Mean Platelet Volume (test code 10.2 fL 7.4-10.4 = 94841-0) [facility]] URINALYSIS, COMPLETE W/REFLEX TO CULTURE 2018-11-05 10:43:01 Test Item Value Reference Range Interpretation Comments UA Color (test code = 5778-6) Ltyellow UA Turbidity (test code = 17710-7) Clear Clear UA Spec Grav (test code = 5810-7) 1.017 <=1.030 UA pH (test code = 5803-2) 5.0 5.0-8.0 UA Protein (test code = 51459-7) Negative Negative UA Glucose (test code = 35476-2) Negative Negative UA Ketones (test code = 79978-2) Negative Negative UA Bili (test code = 5770-3) Negative Negative UA Blood; Abnormal (test code = Moderate Negative A 5794-3) UROBILINOGEN (test code = 70372-3) <=1.0 0.1-1.0 UA Nitrite (test code = 5802-4) Negative Negative UA Leuk Est (test code = 5799-2) Negative Negative UA RBC (test code = 14869-1) 1 {/HPF} 0-2 UA WBC (test code = 39576-2) 1 {/HPF} 0-5 UA Mucus (test code = 8247-9) Few None Seen UA Sq Epi (test code = 03118-8) Occasional Few [facility][H] Celiac Pnl w/Rflx Endomy Ab [id number] 10:43:01 Test Item Value Reference Range Interpretation Comments IgA Lvl (test code = 2458-8) 282.0 mg/dl 68.0-378.0 Gliadin (Deamidated Peptide)IgA 4.5 U/ml <=14.9 Ab (test code = 92249-7) Tissue Transglutaminase (tTG) IgA <0.5 <=14.9 (test code = 26853-2) Gliadin (Deamidated Peptide)IgG <0.4 <=14.9 Ab (test code = 93406-7) Tissue Transglutaminase (tTg) IgG <0.8 <=14.9 (test code = 26280-3) [facility]] CMP [id number] 10:43:01 Test Item Value Reference Range Interpretation Comments Sodium Level 142 {mEq/l} 135-145 (test code = 2951-2) Potassium Level 4.3 {mEq/l} 3.5-5.1 (test code = 2823-3) Chloride Level 107 {mEq/l} 95-109 (test code = 2075-0) Carbon Dioxide 28 {mEq/l} 24-32 (test code = 2027-9) AGAP (test code = 11.3 {mEq/l} 10.0-20.0 98872-6) Glucose Lvl (test 79 mg/dl 70-99 Adult refe rence range code = 2345-7) values reflec t the clinical guidel inesof the [place] Diabet es Association. Creatinine Lvl 0.70 mg/dl 0.50-1.40 (test code = 2160-0) Blood Urea 14 mg/dl 7-22 Nitrogen (test code = 3094-0) BUN/Creatinine 20 6-25 Ratio (test code = 3097-3) Total Protein 7.7 g/dl 6.4-8.4 (test code = 2885-2) Albumin Lvl (test 4.5 g/dl 3.5-5.0 code = 1751-7) Globulin (test 3.2 g/dl 2.7-4.2 code = 49255-7) A/G Ratio (test 1.4 0.7-1.6 code = 1759-0) Calcium Level 9.2 mg/dl 8.5-10.5 Total (test code = 29108-0) ALT (test code = 32 u/l 0-65 1743-4) AST (test code = 24 u/l 0-37 15240-3) Bili Total (test 0.3 mg/dl 0.2-1.3 code = 1974-2) Alk Phos (test 77 u/l 39-136 code = 1783-0) eGFR (test code = 106 The eGFR i s calculated 43478-4) {ML/MIN/1.7} using the CKD-E PI formula. In mos t young, healthyindividu als the eGFR will be >9 0 mL/min/1.73m2. The eGFR declines with a ge. AneGFR of 60-89 may be normal in some population s, particularly th e elderly, forwhom the CKD -EPI formula has not been extensively kelin idated. Use of the eGFR isnot recommended in the following populations:Ind ividuals with unstable c reatinine concentrations, including patient s and those with seri ous co-morbid conditions.Mirella ents with extremes in mus nikki mass or diet.The ronny a above are obtained fr om the National Kidney Disease Education Progr am(NKDEP) which aimee dhillon recommends that when the eGFR is used in patientswith ex tremes of body mass index for purposes of lorie g dosing, the eGFR should be multiplied by t he estimated BMI. [facility]] LIPID [id number] 10:43:01 Test Item Value Reference Range Interpretation Comments Chol; Above High Threshold (test 240 mg/dl <=199 code = 2093-3) Trig (test code = 2571-8) 68 mg/dl <=149 HDL Cholesterol (test code = 68 mg/dl >=61 2085-9) CHD Risk; Below Low Threshold (test 3.53 3.90-5.80 code = 15597-0) LDL; Above High Threshold (test 158 mg/dl <=99 code = 13686-2) VLDL (test code = VLDL) 14 [facility]] THYROID [id number] 10:43:01 Test Item Value Reference Range Interpretation Comments TSH; Below Low Threshold (test 0.148 {uIU/ml} 0.360-3.740 code = 51307-8) T3 Uptake (test code = 3050-2) 32 % 31-39 Thyroxine (test code = 3026-2) 8.8 ug/dL 4.7-13.3 [facility][H] Free Thyroxine [id number] 10:43:01 Test Item Value Reference Range Interpretation Comments Free Thyroxine Index (test code = 2.8 59502-8) [facility]] HEMOGLOBIN [id number] 10:43:01 Test Item Value Reference Range Interpretation Comments Hemoglobin A1c (test code = 4548-4) 5.1 % <=5.6 [facility][H] Misc [id number] 10:38:01 Test Item Value Reference Range Interpretation Comments [facility] (test COMMENT Test Orde red: [id number] code = [facility] LabIlrp) 25-Hydr oxyvitamin D LCMS D2+J032-Anuoptk , Vitamin D 37 ng/mL ESRe ference Range:All Ages: Target levels 30 - 46392-Cmunhzp, Vitamin D-2 7.3 ng/mL ES25 -Hydroxy, Vitamin D-3 30 ng/mL ESPerformed At: [facility] [id number] [place], [place] [id number] ra Suzanne VERDE Ph:[phone] At: [facility] [address] [place], [place] [id number] edna Haley MD Ph:[phone] [facility] Digital Mammo Screen Keenan w simon [id number] 12:39:00BILATERAL DIGITAL SCREENING MAMMOGRAM 3D/2D WITH CAD: 08/27/2018CLINICAL: Screening/Z12.31. Current study was evaluated with a Computer Aided Detection (CAD) system. COMPARISON:Comparison is made to exams dated: 02/28/2017 mammogram, 02/25/2015mammogram, and 01/03/2012 mammogram - Anitra Nogueira. TECHNIQUE: Digital Breast Tomosynthesis was performed and utilized forInterpretation. Quitt.ch, version 8.1 was utilized for computer aideddetection. FINDINGS:The tissue of both breasts is extremely dense. This may lower the sensitivityof mammography. There are benign diffuse calcifications in both breasts. Bilateralretropectoral saline implants are stable. Implants may obscure breastparenchyma, making mammographic interpretation difficult. No suspicious masses, clusters of microcalcifications or areas of architecturaldistortion are demonstrated within either breast. IMPRESSION: BENIGNRECOMMENDATION:There is no mammographic evidence of malignancy. A 1 yearscreening mammogram is recommended.(08/28/2019) Professional services are provided by [facility].Amarilis Estrada M.D., rp/radha:08/27/2018 13:15:29 Mortgage Processing Clerk(s): Anitra Razo sent: BI-RADS 1/2 Mammogram BI-RADS: 2 Benign--Read by: Amarilis Estradaictated Date/time: 08/27/18 13:15Electronically Signed by: Amarilis Estrada MD 08/27/1912:15FINAL REPORTUnLogan [facility] Hospital [facility]] [id number] 14:21:01 Test Item Value Reference Range Interpretation Comments Prolactin Lvl (test 8.9 ng/ml Male: code = 2842-3) 2.1-17.7 n g/mLFemale: Non- 2.8-29.2 ng/mL 9.7-208.5 ng/mL Postmenopausal 1.8-20.3 ng/mL [facility]] [id number] 14:21:01 Test Item Value Reference Range Interpretation Comments Estridiol Lvl (test 17.3 pg/ml Menstrua ting Females: code = 2243-4) (By day in cy nikki related to LH Peak) F ollicular phase (-12 to - 4 days) 19.5 - 144.2 p g/mL Midcycle (-3 to +2 days) 63 .9 - 356.7 pg/mL L uteal Phase (+4 t o +12 days) 55.8 - 214.2 pg/mL Postmen opausal (untreated) 0.0 - 32.2 pg/mLMa les: 0.0 - 39.8 pg/mL [facility]] [id number] 14:21:01 Test Item Value Reference Range Interpretation Comments Follicle Stimulating 119.1 {miU/ml} FSH p ediatric ranges Hormone (test code = publish ed in the 75810-4) literature* age(yrs) male(miu/ml) age(yrs) female(miu/ml) -------- -------- P repub ertalChildren: 2-8 0-3 .0 2-8 1.0-4.2Puberty: <9.0 0 -3.0 <9.2 1.0-4.2 9.8-14.5 1.8-3.2 9.2-13.7 1.0-10.8 10.7-15.4 1.2-5.8 10.0-14.4 1.5-12.8 11.8-16.2 2.0-9.2 10.7-15.6 1.5-11.7 12.8-17.3 2.6-11.0 11.8-18.6 1.0-9.2*Tae keenan [facility] has no t established normalranges fo r the above age groups.Adult reference range s: Male: 1.0 - 12.0 miu/ml Female: Follicular phas e: 3.0-20.0 miu/m l Mid-cycle: 9.0 -26.0 miu/ml Luteal phase: 1.0-12.0 miu/m l Post menopausal: 18.0-153.0 miu/ ml [facility]] [id number] 14:21:01 Test Item Value Reference Range Interpretation Comments Luteinizing Hormone 59.82 {miU/ml} LH ped iatric ranges (test code = [place] 24086-0) literature* age(yrs) male(miu/ml) age(yrs) female(miu/ml) -------- -------- P repub ertalChildren: 2-8 0-0 .3 2-8 0-0.3Puberty: <9.8 0-0 .3 <9.2 0-0.3 9.8-14.5 0 -4.9 9.2-13.7 0-4.7 10.7-15.4 0. 2-5.0 10.0-14. 4 0-12.0 11.8-17.3 0. 4-7.0 10.7-18. 6 0.4-11.7*J Carlos ayala [facility] has no t established normalranges fo r the above age groups.Adult reference range s: Male: 2.0 - 12.0 miu/ml Female: Follicular phas e: 2.0-15.0 miu/m l Mid-cycl e peak: 22.0-105. 0 miu/ml Luteal phase: 0.6-19.0 miu/m l Post menopausal: 16.0-64.0 miu/ ml [facility][] HEPATITIS B SURFACE ANTIGEN W/REFL CONFIRM 2018-08-09 14:21:01 Test Item Value Reference Range Interpretation Comments Hepatitis B Surface Antigen (test Negative Negative code = 5195-3) [facility]] DHEA [id number] 14:21:01 Test Item Value Reference Range Interpretation Comments Dehydroepiandrosterone Sulfate (test 91 ug/dL 35-430 code = Dehydroepiandrosterone Sulfate) [facility]] HEPATITIS C [id number] 14:21:01 Test Item Value Reference Range Interpretation Comments Hepatitis C Antibody (test code = Negative 93901-1) [facility][] HIV AB, HIV 1/2, EIA, WITH [id number] 14:21:01 Test Item Value Reference Range Interpretation Comments HIV Ag/Ab 4th Gen Negative Negative HIV test r esults should be (test code = considered posi tive only 63157-2) when both the s creening andthe confirma tory tests are positive. A negative confirmatory te st in patientswith a positive screening test does not exclude HIV inf ection. If clincallywarran bobby, an HIV RNA quantitativ e test should be order ed. [facility]] [id number] 14:21:01 Test Item Value Reference Range Interpretation Comments RPR (test code = 67195-4) Non-Reactive Non-Reactive [facility]] TESTOSTERONE, FREE AND TOTAL, LC/MS/MS 2018-08-09 14:21:01 Test Item Value Reference Interpretation Comments Range Testosterone Tot 13.4 ng/dl Female: (test code = Premenopausa l 10.0 - 2986-8) 55.0 Postmenopausal 7.0 - 40.0This test w as developed and its perform ance characteristics determined by [facility]. It has not been cleared orappro shirlene by the Food and Drug A dministration. Testorone Free 0.7 pg/ml 0.0-4.2 Performed At: [facility] (test code = [id number] Testorone Free) [place], [place] [id number] ra Suzanne VERDE Ph:[phone] [facility]. [facility] - [id number] 00:00:00 Test Item Value Reference Range Interpretation Comments PAP REPORT (test code = 93576-6) See Comment [facility][] CBC (without differential)2018-07-19 09:19:01 Test Item Value Reference Range Interpretation Comments WBC (test code = 6690-2) 8.0 {K/CMM} 3.7-10.4 RBC (test code = 789-8) 4.39 {M/CMM} 4.20-5.40 Hgb (test code = 718-7) 13.8 g/dl 12.0-16.0 Hct (test code = 31821-9) 43.4 % 36.0-48.0 MCV; Above High Threshold (test 98.9 fL 80.0-98.0 code = 787-2) MCH; Above High Threshold (test 31.4 pg 27.0-31.0 code = 785-6) MCHC; Below Low Threshold (test 31.8 g/dl 32.0-36.0 code = 786-4) RDW (test code = 788-0) 14.4 % 11.5-14.5 Platelet (test code = 13576-4) 230 {K/CMM} 133-450 Mean Platelet Volume (test code 9.5 fL 7.4-10.4 = 00280-3) [facility]] URINALYSIS, [id number] 09:19:01 Test Item Value Reference Range Interpretation Comments UA Turbidity (test code = 76096-2) Clear Clear UA Spec Grav (test code = 5810-7) 1.014 <=1.030 UA pH (test code = 5803-2) 5.0 5.0-8.0 UA Protein (test code = 94952-0) Negative Negative UA Glucose (test code = 39669-6) Negative Negative UA Ketones (test code = 79609-0) Negative Negative UA Bili (test code = 5770-3) Negative Negative UA Blood; Abnormal (test code = Moderate Negative A 5794-3) UA Nitrite (test code = 5802-4) Negative Negative UA Leuk Est (test code = 5799-2) Negative Negative UA RBC; Above High Threshold (test 3 {/HPF} 0-2 code = 83086-1) UA WBC (test code = 79864-7) <1 0-5 UA Bacteria (test code = 72009-8) Occasional None Seen UA Mucus (test code = 8247-9) Few None Seen UA Sq Epi (test code = 14812-3) Occasional Few Urine Hyaline Casts (test code = 1 {/LPF} 0-2 36879-8) UA Color (test code = 5778-6) Ltyellow UROBILINOGEN (test code = 65188-6) <=1.0 0.1-1.0 [facility]] CMP [id number] 09:19:01 Test Item Value Reference Range Interpretation Comments Sodium Level 142 {mEq/l} 135-145 (test code = 2951-2) Potassium Level 4.9 {mEq/l} 3.5-5.1 (test code = 2823-3) Chloride Level 108 {mEq/l} 95-109 (test code = 5-0) Carbon Dioxide 26 {mEq/l} 24-32 (test code = 2027-9) AGAP (test code = 12.9 {mEq/l} 10.0-20.0 95329-2) Glucose Lvl (test 78 mg/dl 70-99 Adult refe rence range code = 2345-7) values reflec t the clinical guidel inesof the [place] Diabet es Association. Creatinine Lvl 0.80 mg/dl 0.50-1.40 (test code = 2160-0) Blood Urea 15 mg/dl 7-22 Nitrogen (test code = 3094-0) BUN/Creatinine 19 6-25 Ratio (test code = 3097-3) Total Protein 7.4 g/dl 6.4-8.4 (test code = 2885-2) Albumin Lvl (test 4.1 g/dl 3.5-5.0 code = 1751-7) Globulin (test 3.3 g/dl 2.7-4.2 code = 45445-8) A/G Ratio (test 1.2 0.7-1.6 code = 1759-0) Calcium Level 9.0 mg/dl 8.5-10.5 Total (test code = 83837-5) ALT (test code = 34 u/l 0-65 1743-4) AST (test code = 23 u/l 0-37 02928-6) Bili Total (test 0.4 mg/dl 0.2-1.3 code = 1975-2) Alk Phos (test 69 u/l 39-136 code = 1783-0) eGFR (test code = 91 The eGFR i s calculated 45942-6) {ML/MIN/1.7} using the CKD-E PI formula. In mos t young, healthyindividu als the eGFR will be >9 0 mL/min/1.73m2. The eGFR declines with a ge. AneGFR of 60-89 may be normal in some population s, particularly th e elderly, forwhom the CKD -EPI formula has not been extensively kelin idated. Use of the eGFR isnot recommended in the following populations:Ind ividuals with unstable c reatinine concentrations, including patient s and those with seri ous co-morbid conditions.Mirella ents with extremes in mus nikki mass or diet.The ronny a above are obtained fr om the National Kidney Disease Education Progr am(NKDEP) which aimee dhillon recommends that when the eGFR is used in patientswith ex tremes of body mass index for purposes of lorie g dosing, the eGFR should be multiplied by t he estimated BMI. [facility]] LIPID [id number] 09:19:01 Test Item Value Reference Range Interpretation Comments Chol; Above High Threshold (test 212 mg/dl <=199 code = 2093-3) Trig (test code = 2571-8) 82 mg/dl <=149 HDL Cholesterol (test code = 62 mg/dl >=61 5-9) CHD Risk; Below Low Threshold (test 3.42 3.90-5.80 code = 13956-9) LDL; Above High Threshold (test 134 mg/dl <=99 code = 29105-4) VLDL (test code = VLDL) 16 [facility]] THYROID [id number] 09:19:01 Test Item Value Reference Range Interpretation Comments TSH (test code = 91360-6) 1.010 {uIU/ml} 0.360-3.740 T3 Uptake (test code = 3050-2) 35 % 31-39 Thyroxine (test code = 3026-2) 8.0 ug/dL 4.7-13.3 [facility][H] Free Thyroxine [id number] 09:19:01 Test Item Value Reference Range Interpretation Comments Free Thyroxine Index (test code = 2.8 06906-3) [facility]] HEMOGLOBIN [id number] 09:19:01 Test Item Value Reference Range Interpretation Comments Hemoglobin A1c (test code = 4548-4) 5.3 % <=5.6 [facility]] VITAMIN D, 25-HYDROXY, LC/[id number] 09:19:01 Test Item Value Reference Range Interpretation Comments Vitamin D, 25-OH, 38.8 ng/ml 30.0-100.0 Reference range is based Total (test code on recommen dations in the = Vitamin D, EndocrineSociet y Clinical 25-OH, Total) Practice Guide line (J Clin Endocrinol Udmib9844;96:19 11-1930) [facility]] CULTURE, URINE, [id number] 09:19:01 Test Item Value Reference Range Interpretation Comments FINAL REPORT (test code = FINAL No Growth REPORT) [facility]iciansTobacco Use [id number] 21:15:00 Test Item Value Reference Range Interpretation Comments Completed (test code = Completed) DONE [facility]
--- OUTSIDE RECORDS SUMMARY | 2020-07-14 09:29 | XMS REPORT | Summary of Care ---
:1975 Author Name Julia JimenezRowan Address Unavailable Unavailable , Care Team Providers Name Role Phone YANN Álvarez Unavailable Unavailable GONZALO Álvarez Unavailable Unavailable RICHARD Álvarez Unavailable Unavailable Yann VERDE Unavailable Unavailable GONZALO VERDE [place] Unavailable Unavailable SAMI WHITE SUGAR BOILER Unavailable Unavailable JAVON WHITE SUGAR BOILER [place] Unavailable Unavailable WES VERDE [place] Unavailable Unavailable RICHARD VERDE Unavailable Unavailable IRASEMA VERDE Unavailable Unavailable RICHARD VERDE JR Unavailable Unavailable JESU VERDE [place] Unavailable Unavailable Kamille VERDE Unavailable Unavailable Unavailable Unavailable Unavailable Functional Status Name Dates Details Functional status health issues are not documented Status: Name Dates Details Cognitive status health issues are not documented Status: Problems Name Dates Details Low back pain (724.2, M54.5) Status: Act duong Lumbosacral strain, initial encounter (846.0, S39.012A) Status: Active Vision problem (V41.0, H54.7) Status: Ac tive Allergic rhinitis (477.9, J30.9) Status: Active 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, 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 Macrocytosis without anemia (289.89, D75.89) Status: Active Dyslipidemia (272.4, E78.5) Status: Acti ve Encounter for routine gynecological exam ination with Papanicolaou smear of cervix (V72.31, Z01.419) Status: Active Vaginal discharge (623.5, N89.8) Status: Active Screen for sexually transmitted diseases (V74.5, Z11.3) Status: Active Neuropathic pain (729.2, M79.2) Status: Active Gastrointestinal food sensitivity (693.1, T78.1XXA) Status: Active Low TSH level (794.5, R79.89) Status: Ac tive Secondary amenorrhea (626.0, N91.1) Stat us: Active Myofascial pain syndrome (729.1, M79.18) Status: Active Thyroid cyst (246.2, E04.1) Status: Acti ve Thyroid nodule (241.0, E04.1) Status: Ac tive Alcohol use disorder, moderate, dependence (303.90, F10.20) Status: Active Severe episode of recurrent major depres sive disorder, 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, F33.2) Status: Active Hyperthyroidism (242.90, E05.90) Status: Active Abnormal thyroid function test (794.5, R94.6) Status: Active Follow up (V67.9, Z09) Status: Active Hormone replacement therapy (V07.4, Z79.890) Status: Active Trochanteric bursitis of right hip (726.5, M70.61) Status: Active Encounter for vitamin deficiency screening (V77.99, Z13.21) Status: Active Preoperative clearance (V72.84, Z01.818) Status: Active Need for influenza vaccination (V04.81, Z23) Status: Active Post-menopause (V49.81, Z78.0) Status: A ctive Abnormal uterine bleeding (AUB) (626.9, N93.9) Status: Active Depression (311, F32.9) Status: Active Hormone imbalance (259.9, E34.9) Status: Active Hormone disorder (259.9, E34.9) Status: Active Spondylolisthesis of lumbar region (738.4, M43.16) Status: Active DDD (degenerative disc disease), lumbar (722.52, M51.36) Status: Active Lumbar spondylosis (721.3, M47.816) Stat us: Active Bilateral sacroiliitis (720.2, M46.1) St atus: Active Lumbar radiculopathy (724.4, M54.16) Sta tus: Active Sacroiliitis (720.2, M46.1) Status: Acti ve Lumbosacral spondylosis (721.3, M47.817) Status: Active Major depressive disorder, recurrent epi sode, moderate with anxious distress (296.32, F33.1) Status: Active Chronic insomnia (780.52, F51.04) Status : Active Prehypertension (796.2, R03.0) Status: A ctive Reactive hypertension (401.9, I10) Statu s: Active Alcohol use disorder, moderate, in early remission (305.03, F10.21) Status: Active Close exposure to COVID-19 virus (V01.79, Z20.828) Status: Active Microscopic hematuria (599.72, R31.29) S tatus: Active Hyperlipidemia (272.4, E78.5) Status: Ac tive SEBAS (generalized anxiety disorder) (300.02, F41.1) Status: Active Anxiety (300.00, F41.9) Status: Active MDD (major depressive disorder), single episode, mild (296.2 1, F32.0) Status: Active PTSD (post-traumatic stress disorder) (309.81, F43.10) Status: Active Medications Name Dates Details valACYclovir HCl - 1 GM Oral Tablet TAKE ONE (1) TABLET(S) BY MOUTH ONCE A D AY. Quantity: 90 Refills: 1 AUSTIN LERNER M.D. Start : 02-Apr-2019 Active traZODone HCl - 50 MG Oral Tablet TAKE ONE AND ONE-HALF (1&1/2) TABLET BY MOUTH AT BEDTIME NEEDED. Quantity: 135 Refills: 0 CHANEL SÁNCHEZ M.D. Start : 24-Aug-2017 Active Cetirizine HCl - 10 MG Oral Tablet TAKE ONE (1) TABLET(S) BY MOUTH ONCE A DAY. Quantity: 90 Refills: 1 AUSTIN LERNER M.D. Start : 02-Jan-2018 Active Desvenlafaxine Succinate ER 100 MG Oral Tablet Extended Release 24 Hour TAKE 1 TABLET BY MOUTH EVERY DAY Quantity: 90 Refills: 0 CHANEL SÁNCHEZ M.D. Start : 30-Sep-2018 Active Fluticasone Propionate 50 MCG/ACT Nasal Suspension USE 1 SPRAY IN EACH NOSTRIL TWICE DAILY. Quantity: 1 Refills: 0 AUSTIN LERNER M.D. Start : 18-Dec-2017 Active 15.8 ML Bottle Biotin TABS Refills: 0 Active Vitamin C TABS Refills: 0 Active Vitamin D CAPS Refills: 0 Active Gralise Starter 300 & 600 MG MISC Refills: 0 Start : 26-Sep-2019 Active Gralise 600 MG Oral Tablet 3 po 4hrs before bedtime with meal Quantity: 90 Refills: 3 RICHARD Álvarez, [place] Start : 15-Oct-2019 Active Cyclobenzaprine HCl - 10 MG Oral Tablet TAKE 1 TABLET 3 TIMES DAILY as needed for muscle spasm Quantity: 40 Refills: 0 RICHARD Dailey., [place] Start : 01-Oct-2019 Active Allergies and Adverse Reactions Name Dates Details morphine (Allergy) Status: Active tramadol (Allergy) Status: Active Past Medical History Name Dates Details 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, 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 PTSD (post-traumatic stress disorder) (309.81, F43.10) Status: Active History of Breast screening (V76.10, Z12.39) Status: Resolved History of Chronic low back pain (724.2, M54.5) Status: Resolved History of Spondylolisthesis (756.12, M43.10) Status: Resolved Procedures Procedure Dates Details History of Breast augmentation Completed History of Dilation and curettage Comple bobby History of section Completed Immunization Name Dates Details Fluzone Quadrivalent 0.5 ML Intramuscular Suspension on: Lot #: [id number] Tdap (Adacel) on: 20-Jun-2017 Lot #: [id number] Fluzone Quadrivalent 0.5 ML Intramuscular Suspension on: Lot #: [id number] Family History Name Dates Details Family history of hyperlipidemia (V18.19, Z83.438) Comments: Family History Status: Active Family history of cardiac disorder (V17.49, Z82.49) Comments: Family History Status: Active Social History Name Dates Details - Status: Name Dates Details Never smoked tobacco (finding) Never smoked tobacco (finding) Vital Signs Date Test Result Details No Known Vitals to report Results Date Description Value Details Results not documented Plan of Care Name Dates Details Planned Observations Planned Goals not documented Interventions Provided Medication ChangesFluticasone Propionate 50 MCG/ACT Nasal Suspension - Renew Instructions Name Dates Details Instructions not documented Encounters Appointment; LAUREN UP LCSW On: 06-May-2018 11: 00 Encounter Diagnosis: Problem not documented Appointment; LAUREN UP LCSW On: 13-May-2018 8:0 0 Encounter Diagnosis: Problem not documented Appointment; LAUREN UP LCSW On: 20-May-2018 8:00 Encounter Diagnosis: Problem not documented Appointment; LAUREN UP LCSW On: 27-May-2018 10:0 0 Encounter Diagnosis: Problem not documented Appointment; SAUD VILLALPANDO M.D. On: 09-Aug-2018 13 :00 Encounter Diagnosis: Problem not documented Appointment; SAUD VILLALPANDO M.D. On: 27-Aug-2018 15: 00 Encounter Diagnosis: Problem not documented Appointment; CHANEL SÁNCHEZ M.D. On: 12-Sep-2018 15:30 Encounter Diagnosis: Problem not documented Appointment; SAUD VILLALPANDO M.D. On: 24-Sep-2018 14: 00 Encounter Diagnosis: Problem not documented Appointment; ELHAM RAMOS M.D. On: 14-Oct-2018 1 0:45 Encounter Diagnosis: Problem not documented Appointment; SAUD VILLALPANDO M.D. On: 22-Oct-2018 14: 15 Encounter Diagnosis: Problem not documented Appointment; CHANEL SÁNCHEZ M.D. On: 23-Oct-2018 8:30 Encounter Diagnosis: Problem not documented Appointment; CHANEL SÁNCHEZ M.D. On: 24-Oct-2018 16:00 Encounter Diagnosis: Problem not documented Appointment; ELHAM RAMOS M.D. On: 04-Nov-2018 1 3:00 Encounter Diagnosis: Problem not documented Appointment; AUSTIN LERNER M.D. On: 05-Nov-2018 10 :30 Encounter Diagnosis: Problem not documented Appointment; YK GALLARDO LCSW On: 14-Nov-2018 14: 00 Encounter Diagnosis: Problem not documented Appointment; ELHAM RAMOS M.D. On: 18-Nov-2018 9: 15 Encounter Diagnosis: Problem not documented Appointment; [place] GALLARDO LCSW On: 21-Nov-2018 16:0 0 Encounter Diagnosis: Problem not documented Appointment; [place] GALLARDO LCSW On: 28-Nov-2018 16: 00 Encounter Diagnosis: Problem not documented Appointment; [place] GALLARDO LCSW On: 05-Dec-2018 16: 00 Encounter Diagnosis: Problem not documented Appointment; [place] GALLARDO LCSW On: 12-Dec-2018 16: 00 Encounter Diagnosis: Problem not documented Appointment; [place] GALLARDO LCSW On: 19-Dec-2018 16:0 0 Encounter Diagnosis: Problem not documented Appointment; CHANEL SÁNCHEZ M.D. On: 27-Dec-2018 8:00 Encounter Diagnosis: Problem not documented Appointment; [place] GALLARDO LCSW On: 16-Jan-2019 8:0 0 Encounter Diagnosis: Problem not documented Appointment; [place] GALLARDO LCSW On: 23-Jan-2019 8:00 Encounter Diagnosis: Problem not documented Appointment; [place] GALLARDO LCSW On: 30-Jan-2019 8:0 0 Encounter Diagnosis: Problem not documented Appointment; [place] GALLARDO LCSW On: 14-Feb-2019 8:0 0 Encounter Diagnosis: Problem not documented Appointment; [place] GALLARDO LCSW On: 21-Feb-2019 8:00 Encounter Diagnosis: Problem not documented Appointment; [place] GALLARDO LCSW On: 26-Feb-2019 8:0 0 Encounter Diagnosis: Problem not documented Appointment; [place] GALLARDO LCSW On: 04-Apr-2019 10: 00 Encounter Diagnosis: Problem not documented Appointment; [place] GALLARDO LCSW On: 09-Apr-2019 8:0 0 Encounter Diagnosis: Problem not documented Appointment; CHANEL SÁNCHEZ M.D. On: 10-Apr-2019 16:00 Encounter Diagnosis: Problem not documented Appointment; MELY COTA M.D. On: 15-Apr-2019 8:0 0 Encounter Diagnosis: Problem not documented Appointment; [place] GALLADRO LCSW On: 16-Apr-2019 8:0 0 Encounter Diagnosis: Problem not documented Appointment; SAUD VILLALPANDO M.D. On: 28-Apr-2019 14: 00 Encounter Diagnosis: Problem not documented Appointment; [place] GALLARDO LCSW On: 14-May-2019 9:0 0 Encounter Diagnosis: Problem not documented Appointment; [place] GALLARDO LCSW On: 21-May-2019 8:00 Encounter Diagnosis: Problem not documented Appointment; EL[place]AM RAMOS M.D. On: 26-May-2019 9: 15 Encounter Diagnosis: Problem not documented Appointment; [place] GALLARDO LCSW On: 29-May-2019 8:0 0 Encounter Diagnosis: Problem not documented Appointment; [place] GALLARDO LCSW On: 04-Jun-2019 8:0 0 Encounter Diagnosis: Problem not documented Appointment; [place] GALLARDO LCSW On: 05-Jun-2019 8:0 0 Encounter Diagnosis: Problem not documented Appointment; CHANEL SÁNCHEZ M.D. On: 06-Jun-2019 8:30 Encounter Diagnosis: Problem not documented Appointment; SAUD VILLALPANDO M.D. On: 09-Jun-2019 11 :10 Encounter Diagnosis: Problem not documented Appointment; [place] GALLARDO LCSW On: 25-Jun-2019 16:0 0 Encounter Diagnosis: Problem not documented Appointment; EL[place] RAMOS M.D. On: 30-Jun-2019 1 0:45 Encounter Diagnosis: Problem not documented Appointment; [place] GALLARDO LCSW On: 02-Jul-2019 16: 00 Encounter Diagnosis: Problem not documented Appointment; [place] GALLAROD LCSW On: 23-Jul-2019 8:00 Encounter Diagnosis: Problem not documented Appointment; [place] GALLARDO LCSW On: 24-Jul-2019 8:00 Encounter Diagnosis: Problem not documented Appointment; [place] GALLARDO LCSW On: 31-Jul-2019 16: 00 Encounter Diagnosis: Problem not documented Appointment; [place] RAMOS M.D. On: 18-Aug-2019 1 4:00 Encounter Diagnosis: Problem not documented Appointment; CHANEL SÁNCHEZ M.D. On: 21-Aug-2019 14:00 Encounter Diagnosis: Problem not documented Appointment; AUSTIN LERNER M.D. On: 28-Aug-2019 8:4 5 Encounter Diagnosis: Problem not documented Appointment; [place] GALLARDO LCSW On: 04-Sep-2019 16: 00 Encounter Diagnosis: Problem not documented Appointment; SAUD VILLALPANDO M.D. On: 10-Sep-2019 9: 30 Encounter Diagnosis: Problem not documented Appointment; [place] GALLARDO LCSW On: 11-Sep-2019 9:0 0 Encounter Diagnosis: Problem not documented Appointment; [place] RAMOS M.D. On: 15-Sep-2019 8 :30 Encounter Diagnosis: Problem not documented Appointment; [place] RAMOS M.D. On: 19-Sep-2019 9 :15 Encounter Diagnosis: Problem not documented Appointment; EL[place] RAMOS M.D. On: 01-Oct-2019 9 :45 Encounter Diagnosis: Problem not documented Appointment; [place] RAMOS M.D. On: 20-Oct-2019 14 :45 Encounter Diagnosis: Problem not documented Appointment; [place] RAMOS M.D. On: 03-Nov-2019 9 :15 Encounter Diagnosis: Problem not documented Appointment; CHANEL SÁNCHEZ M.D. On: 20-Nov-2019 8:30 Encounter Diagnosis: Problem not documented Appointment; CHANEL SÁNCHEZ M.D. On: 21-Jan-2020 15:30 Encounter Diagnosis: Problem not documented Appointment; AUSTIN LERNER M.D. On: 03-Feb-2020 9: 30 Encounter Diagnosis: Problem not documented Appointment; AUSTIN LERNER M.D. On: 02-Mar-2020 17 :30 Encounter Diagnosis: Problem not documented Appointment; AUSTIN LERNER M.D. On: 08-Mar-2020 8: 00 Encounter Diagnosis: Problem not documented Appointment; ELPIDIO PATTON On: 09-Mar-2020 9:1 0 Encounter Diagnosis: Problem not documented Appointment; CHANEL SÁNCHEZ M.D. On: 25-Mar-2020 16:00 Encounter Diagnosis: Problem not documented
--- OUTSIDE RECORDS SUMMARY | 2020-07-14 09:29 | XMS REPORT | Summary of Care ---
:1975 Author Name YANN Álvarez Address [facility] Unavailable , Care Team Providers Name Role Phone YANN Álvarez Unavailable Unavailable GONZALO Álvarez Unavailable Unavailable RICHARD Álvarez Unavailable Unavailable Yann VERDE Unavailable Unavailable GONZALO VERDE [place] Unavailable Unavailable SAMI INSTRUCTIONAL SPECIALIST Unavailable Unavailable JAVON INSTRUCTIONAL SPECIALIST [place] Unavailable Unavailable WSE VERDE [place] Unavailable Unavailable RICHARD VERDE Unavailable [...] Active Hormone disorder (259.9, E34.9) Status: Active DDD (degenerative disc disease), lumbar (722.52, M51.36) Status: Active Spondylolisthesis of lumbar region (738.4, M43.16) Status: Active Lumbar spondylosis (721.3, M47.816) Stat [...] CHANEL SÁNCHEZ M.D. Start : 24-Aug-2017 Active Fluticasone Propionate 50 MCG/ACT Nasal Suspension USE 1 SPRAY IN EACH NOSTRIL TWICE DAILY. Quantity: 1 Refills: 0 CA LERNER M.D.ROOZ Start : 18-Dec-2017 Active 15.8 ML Bottle Cetirizine HCl - 10 MG Oral Tablet TAKE ONE (1) TABLET(S) BY MOUTH ONCE A DAY. Quantity: 90 Refills: 1 CA LERNER M.D.ROOZ Start : 02-Jan-2018 Active Desvenlafaxine Succinate ER 100 MG Oral Tablet Extended Release 24 Hour TAKE 1 TABLET BY MOUTH EVERY DAY Quantity: 90 Refills: 0 CHANEL SÁNCHEZ M.D. Start : 30-Sep-2018 Active Biotin TABS Refills: 0 Active Vitamin C TABS Refills: 0 Active Vitamin D CAPS Refills: 0 Active Gralise Starter 300 & 600 MG MISC Refills: 0 Start : 26-Sep-2019 Active Cyclobenzaprine HCl - 10 MG Oral Tablet TAKE 1 TABLET 3 TIMES DAILY as needed for muscle spasm Quantity: 40 Refills: 0 RICHARD Carola.Rusty., [place] Start : 01-Oct-2019 Active Gralise 600 MG Oral Tablet 3 po 4hrs before bedtime with meal Quantity: 90 Refills: 3 RICHARD M.Rusty., [place] Start : 15-Oct-2019 Active Allergies and Adverse Reactions Name Dates [...] 0.5 ML Intramuscular Suspension on: Lot #: [id number] Tdap (Adacel) on: 20-Jun-2017 Lot #: [id number] Fluzone Quadrivalent 0.5 ML Intramuscular Suspension on: Lot #: [id number] Family History Name Dates Details Family history [...] Planned Goals not documented Interventions Provided Medication ChangesvalACYclovir HCl - 1 GM Oral Tablet - Renew Instructions Name Dates Details Instructions not documented Encounters Appointment; LAUREN UP LCSW On: 25-Apr-2018 8:00 Encounter Diagnosis: Problem not documented Appointment; LAUREN UP LCSW On: 06-May-2018 11: [...] :30 Encounter Diagnosis: Problem not documented Appointment; [place] GALLARDO LCSW On: 14-Nov-2018 14: 00 Encounter [...] not documented Appointment; [place] GALLARDO LCSW On: 16-Apr-2019 8:0 0 Encounter Diagnosis: [...] not documented Appointment; [place] GALLARDO LCSW On: 23-Jul-2019 8:00 Encounter Diagnosis: Problem [...] Encounter Diagnosis: Problem not documented Appointment; AUSTIN LERNRE M.D. On: 02-Mar-2020 17 :30 Encounter Diagnosis: Problem not documented Appointment; AUSTIN LERNER M.D. On: 08-Mar-2020 8: 00 Encounter Diagnosis: Problem not documented Appointment; COELPIDIO Ramirez On: 09-Mar-2020 9:1 0 Encounter Diagnosis: Problem not documented Appointment; CHANEL SÁNCHEZ M.D. On: 25-Mar-2020 16:00 Encounter Diagnosis: Problem not documented
--- OUTSIDE RECORDS SUMMARY | 2020-07-14 09:29 | XMS REPORT | Summary of Care ---
:1975 Author Name YANN Álvarez Address [facility] Unavailable , Care Team Providers Name Role Phone YANN Álvarez Unavailable Unavailable GONZALO Álvarez Unavailable Unavailable RICHARD Álvarez Unavailable Unavailable Yann VERDE Unavailable Unavailable GONZALO VERDE [place] Unavailable Unavailable SAMI REFRIGERATION TECH Unavailable Unavailable JAVON REFRIGERATION TECH [place] Unavailable Unavailable WES VERDE [place] Unavailable [...] muscle spasm Quantity: 40 Refills: 0 RICHARD Álvarez, [place] Start : 01-Oct-2019 Active Allergies and [...] 0.5 ML Intramuscular Suspension on: Lot #: [id number] Tdap (Adacel) on: 20-Jun-2017 Lot #: [id number] Fluzone Quadrivalent 0.5 ML Intramuscular Suspension on: Lot #: [id number] Family History Name Dates Details Family history [...]
--- OUTSIDE RECORDS SUMMARY | 2020-07-14 09:30 | XMS REPORT | Summary of Care ---
:1975 Author Name Julia Sanchez Address Unavailable Unavailable , Care Team Providers Name Role Phone YANN Álvarez Unavailable Unavailable GONZALO Álvarez Unavailable Unavailable RICHARD Álvarez Unavailable Unavailable Julia Sanchez Unavailable Unavailable Yann VERDE Unavailable Unavailable GONZALO VERDE [place] Unavailable Unavailable SAMI SHOT PACKER Unavailable Unavailable JAVON SHOT PACKER [place] Unavailable Unavailable WES VERED [place] Unavailable Unavailable RICHARD VERDE Unavailable Unavailable [...] muscle spasm Quantity: 40 Refills: 0 RICHARD M.D., [place] Start : 01-Oct-2019 Active Gralise 600 MG Oral Tablet 3 po 4hrs before bedtime with meal Quantity: 90 Refills: 3 RICHARD M.D., [place] Start : 15-Oct-2019 Active Allergies and [...] 0.5 ML Intramuscular Suspension on: Lot #: [id number] Tdap (Adacel) on: 20-Jun-2017 Lot #: [id number] Fluzone Quadrivalent 0.5 ML Intramuscular Suspension on: Lot #: [id number] Flucelvax Quadrivalent 0.5 ML Intramuscular Suspension Prefilled Syringe on: 03-May-2020 Family History Name Dates Details Family history [...] Details Planned Observations Planned Goals not documented Instructions Name Dates Details Instructions not documented [...] Encounter Diagnosis: Problem not documented Appointment; [place] GALLARDO, SHOT PACKER On: 19-Dec-2018 16:0 0 Encounter Diagnosis: Problem [...]
--- OUTSIDE RECORDS SUMMARY | 2020-07-14 09:30 | XMS REPORT | Summary of Care ---
:1975 Author Name YANN Álvarez Address [facility] Unavailable , Care Team Providers Name Role Phone YANN Álvarez Unavailable Unavailable GONZALO Álvarez Unavailable Unavailable RICHARD Álvarez Unavailable Unavailable Yann VERDE Unavailable Unavailable GONZALO VERDE [facility] Unavailable Unavailable SAMI CONSTRUCTION RECRUITER Unavailable Unavailable JAVON CONSTRUCTION RECRUITER [facility] Unavailable Unavailable WES VERDE [facility] Unavailable Unavailable RICHARD VERDE Unavailable Unavailable IRASEMA VERDE Unavailable Unavailable RICHARD VERDE Unavailable Unavailable JESU VERDE [facility] Unavailable Unavailable Kamille VERDE Unavailable Unavailable Unavailable Unavailable Unavailable Functional Status Name Dates Details Functional status health issues are not documented Status: Name Dates Details Cognitive status health issues are not documented Status: Problems Name Dates Details Hormone imbalance (259.9, E34.9) Status: Active Hormone disorder (259.9, E34.9) Status: Active Low back pain (724.2, M54.5) Status: Act duong Encounter for routine gynecological exam ination with Papanicolaou smear of cervix (V72.31, Z01.419) Status: Active Abnormal thyroid function test (794.5, R94.6) Status: Active Hyperthyroidism (242.90, E05.90) Status: Active Thyroid nodule (241.0, E04.1) Status: Ac tive Encounter for vitamin deficiency screening (V77.99, Z13.21) Status: Active Low TSH level (794.5, R79.89) Status: Ac tive Reactive hypertension (401.9, I10) Statu s: Active Tension headache (307.81, G44.209) Statu s: Active Need for influenza vaccination (V04.81, Z23) Status: Active Vision problem (V41.0, H54.7) Status: Ac tive Preoperative clearance (V72.84, Z01.818) Status: Active Depression (311, F32.9) Status: Active Hyperlipidemia (272.4, E78.5) Status: Ac tive Dyslipidemia (272.4, E78.5) Status: Acti ve Microscopic hematuria (599.72, R31.29) S tatus: Active Post-menopause (V49.81, Z78.0) Status: A ctive Thyroid cyst (246.2, E04.1) Status: Acti ve Macrocytosis without anemia (289.89, D75.89) Status: Active Gastrointestinal food sensitivity (693.1, T78.1XXA) Status: Active Allergic rhinitis (477.9, J30.9) Status: Active Abnormal uterine bleeding (AUB) (626.9, N93.9) Status: Active 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, 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 Prehypertension (796.2, R03.0) Status: A ctive Alcohol use disorder, moderate, in early remission (305.03, F10.21) Status: Active Close exposure to COVID-19 virus (V01.79, Z20.828) Status: Active Screen for sexually transmitted diseases (V74.5, Z11.3) Status: Active Vaginal discharge (623.5, N89.8) Status: Active Secondary amenorrhea (626.0, N91.1) Stat us: Active Follow up (V67.9, Z09) Status: Active Hormone replacement therapy (V07.4, Z79.890) Status: Active Severe episode of recurrent major depres sive disorder, 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, F33.2) Status: Active MDD (major depressive disorder), single episode, mild (296.2 1, F32.0) Status: Active Neuropathic pain (729.2, M79.2) Status: Active Alcohol use disorder, moderate, dependence (303.90, F10.20) Status: Active Major depressive disorder, recurrent epi sode, moderate with anxious distress (296.32, F33.1) Status: Active Chronic insomnia (780.52, F51.04) Status : Active Anxiety (300.00, F41.9) Status: Active PTSD (post-traumatic stress disorder) (309.81, F43.10) Status: Active SEBAS (generalized anxiety disorder) (300.02, F41.1) Status: Active Spondylolisthesis of lumbar region (738.4, M43.16) Status: Active Trochanteric bursitis of right hip (726.5, M70.61) Status: Active Lumbar radiculopathy (724.4, M54.16) Sta tus: Active Myofascial pain syndrome (729.1, M79.18) Status: Active DDD (degenerative disc disease), lumbar (722.52, M51.36) Status: Active Sacroiliitis (720.2, M46.1) Status: Acti ve Lumbosacral spondylosis (721.3, M47.817) Status: Active Lumbar spondylosis (721.3, M47.816) Stat us: Active Bilateral sacroiliitis (720.2, M46.1) St atus: Active Lumbosacral strain, initial encounter (846.0, S39.012A) Status: Active Medications Name Dates Details valACYclovir [...] ONCE A DAY. Quantity: 90 Refills: 1 AUTSIN LERNER M.D. Start : 02-Jan-2018 Active Desvenlafaxine [...] 10 MG Oral Tablet TAKE 1 TABLET BEDTIME as needed for spasm Quantity: 20 Refills: 0 SAFFARI M.D., [place] Start : 01-Oct-2019 Active Gralise 600 MG Oral Tablet 3 po 4hrs before bedtime with meal Quantity: 90 Refills: 3 RICHARD M.D., [place] Start : 15-Oct-2019 Active methylPREDNISolone 4 MG Oral Tablet Medrol Dose pack, USE DIRECTED. Quantity: 21 Refills: 0 SAFFARI M.D., [place] Start : 27-May-2020 Active Allergies and Adverse Reactions Name Dates [...] Resolved Procedures Procedure Dates Details History of Dilation and curettage Comple bobby History of Breast augmentation Completed History of section Completed Immunization Name Dates Details Fluzone Quadrivalent 0.5 ML Intramuscular Suspension on: Lot #: [id number] Tdap (Adacel) on: 20-Jun-2017 Lot #: [id number] Fluzone Quadrivalent 0.5 ML Intramuscular Suspension on: Lot #: [id number] Flucelvax Quadrivalent 0.5 ML Intramuscular Suspension Prefilled Syringe on: 03-May-2020 Family History Name Dates Details Family history of cardiac disorder (V17.49, Z82.49) Comments: Family History Status: Active Family history of hyperlipidemia (V18.19, Z83.438) Comments: Family History Status: Active Social History Name Dates Details - Status: Name Dates Details Never smoked tobacco (finding) Never smoked tobacco (finding) Vital Signs Date Test Result Details No Known Vitals to report Results Date Description Value Details Results not documented Plan of Care Name Dates Details Planned Observations Planned Goals not documented Interventions Provided Medication ChangesCyclobenzaprine HCl - 10 MG Oral Tablet - Renew methylPREDNISolone 4 MG Oral Tablet - StartPlanTension ROLDAN; patient stable, history consistent with tension headaches, no red flag signs. Supportivecare, heat pads, stretching exercises as tolerated. Trial of current medication management, may takeOTC analgesics as needed as directed after completion of Medrol pack. Potential med side effects discussed. Potential side effects discussed. RTO PRN, ED precautions as directed. Instructions Name Dates Details Instructions not documented Encounters Appointment; LAUREN UP LCSW On: 27-May-2018 10:0 [...] Encounter Diagnosis: Problem not documented Appointment; [place] RMAOS M.D. On: 20-Oct-2019 14 :45 Encounter Diagnosis: [...] 25-Mar-2020 16:00 Encounter Diagnosis: Problem not documented Appointment; [place] LERNER M.D. On: 27-May-2020 14: 45 Encounter Diagnosis: Problem not documented
--- OUTSIDE RECORDS SUMMARY | 2020-07-14 09:30 | XMS REPORT | Summary of Care ---
:1975 Author Name YANN Álvarez Address [facility] Unavailable , Care Team Providers Name Role Phone YANN Álvarez Unavailable Unavailable GONZALO Álvarez Unavailable Unavailable RICHARD Álvarez Unavailable Unavailable Yann VERDE Unavailable Unavailable GONZALO VERDE [facility] Unavailable Unavailable SAMI CARGO SERVICE SUPERVISOR Unavailable Unavailable JAVON CARGO SERVICE SUPERVISOR [facility] Unavailable Unavailable WES VERDE [facility] Unavailable [...] 0.5 ML Intramuscular Suspension on: Lot #: [id number] Tdap (Adacel) on: 20-Jun-2017 Lot #: [id number] Fluzone Quadrivalent 0.5 ML Intramuscular Suspension on: Lot #: [id number] Flucelvax Quadrivalent 0.5 ML Intramuscular Suspension Prefilled [...]
--- OUTSIDE RECORDS SUMMARY | 2020-07-14 09:31 | XMS REPORT | Summary of Care ---
:1975 Author Name [facility] Address Unavailable Unavailable , Care Team Providers Name Role Phone YANN Álvarez Unavailable Unavailable GONZALO Álvarez Unavailable Unavailable RICHARD Álvarez Unavailable Unavailable Yann VERDE Unavailable Unavailable GONZALO VERDE [facility] Unavailable Unavailable SAMI BOAT PERSON Unavailable Unavailable JAVON BOAT PERSON [facility] Unavailable Unavailable WES VERDE [facility] Unavailable [...] (post-traumatic stress disorder) (309.81, F43.10) Status: Active Tension headache (307.81, G44.209) Statu s: Active Medications Name Dates Details valACYclovir HCl [...] : 30-Sep-2018 Active Biotin TABS Refills: 0 M.D.Active Vitamin C TABS Refills: 0 M.D.Active Vitamin D CAPS Refills: 0 M.D.Active Gralise Starter 300 & 600 MG MISC Refills: 0 M.D. Start : 26-Sep-2019 Active Cyclobenzaprine HCl - [...] 0.5 ML Intramuscular Suspension on: Lot #: [id number] Tdap (Adacel) on: 20-Jun-2017 Lot #: [id number] Fluzone Quadrivalent 0.5 ML Intramuscular Suspension on: Lot #: [id number] Flucelvax Quadrivalent 0.5 ML Intramuscular Suspension Prefilled [...] Dates Details Instructions not documented Encounters Appointment; SAUD VILLALPANDO M.D. On: 09-Aug-2018 13 [...] Encounter Diagnosis: Problem not documented Appointment; [place] RAMSO M.D. On: 15-Sep-2019 8 :30 Encounter Diagnosis: [...]
[2020-07-14] MEDS ORDERED: NS 0.9% VIAL 40 ML ONE (09:34)
[2020-07-14] MEDS ORDERED: GENTAMICIN SULF 80 MG/2ML INJ ONE (09:35)
[2020-07-14] MEDS ORDERED: CEFAZOLIN SODIUM 1 GM/VIAL ONE (09:35)
[2020-07-14] MEDS ORDERED: LIDOCAINE 1% W/EPI 1:100,000 MDV 20 ML VIAL ONE (09:35)
[2020-07-14] MEDS ORDERED: Mastisol Adhesive Liq ONE (09:35)
[2020-07-14] MEDS ORDERED: BACITRACIN 50000 UNIT VIAL ONE (09:35)
[2020-07-14] MEDS ORDERED: EPHEDRINE SULF 50 MG/ML VIAL ONE (10:14)
[2020-07-14] MEDS ORDERED: NEOSTIGMINE 1 MG/ML -5 ML ONE (11:24)
[2020-07-14] MEDS ORDERED: KETOROLAC 30 MG/ML INJ ONE (11:27)
[2020-07-14] MEDS ORDERED: FENTANYL CITR 100 MCG/2 ML ONE ×2 (12:02→13:42)
[2020-07-14] MEDS: HYDROMORPHONE HCL 1 MG/ML INJ ONE ×6 (15:22→15:50)
[2020-07-14] MEDS ORDERED: MEPERIDINE HCL 50 MG/ML ONE (16:10)
[2020-07-14] MEDS ORDERED: DIPHENHYDRAMINE 50 MG/ML VIAL ONE (16:22)
[2020-07-14] MEDS ORDERED: CODEINE 30MG/APAP 300MG TAB ONE (16:59)
[2020-07-14 17:22] VITALS: TEMP 98.2
[2020-07-14 17:43] VITALS: BP 123/74; O2SAT 100
--- NOTE | 2020-07-14 20:13 | OP ---
Surgeon: Davey Astudillo MD Preoperative Diagnosis: Breast descent, status post anchor lift and implant. Postoperative Diagnosis: Breast descent, status post anchor lift and implant. Procedure Performed: Explantation, breast lift. Anesthesia: General. Description Of Procedure: After satisfactory induction of general anesthesia, 45 mm template was use d on the right and left areolas. Then, the transverse curvilinear incision was made. The cephalad i ncision was made with electrocautery. Flap was thinned to 1.3 cm. The flap was noted toward the terri rnum, clavicle, anterior axillary line. Inferior incision was made and then left pectoral dissection was performed. Implant was removed as was the saline implants removed and weighed 394 g on the righ t and 394 on the left. The patient then had the inferior incision made. The excess tissue formed in to a cone with 2-0 PDS sutures and then straps were elevated at 12 o'clock, 1:30 and 3 o'clock positi on. The straps were then woven in and out of the pectoralis muscle back to base of cone and tied the mselves with 2-0 PDS suture. This was done for 12 o'clock and 1:30 strap. The 3 o'clock strap was s ewn over the sternum at 3 o'clock position with 2-0 Ethibond. Excess breast tissue was excised prior to conization. The wounds were temporary stapled shut. Attention was paid on the opposite. Mirror image was done. We then returned to the right side, marked out lateral dog ears and marked with asy mmetries and this was resected with scalpel forceps. Electrocautery was used for hemostasis. Wounds were irrigated with antibiotic solution. A 10 DAVINA was brought out the axilla, sewn in place with 2-0 silk, and wound closed with 3-0 Vicryl and subcu 3-0 PDS running subcuticular tied in the vertical m eridian of the breast. Left side done in a mirror-image manner. The patient was sat up. Site for n ew nipple-areolar complex was marked out. Tissue cored out with a 45 mm template and nipple areolar complex was sewn in place with 4-0 PDS interrupted followed with 4-0 PDS running subcuticular. Dress ings of tincture of benzoin, Steri-Strips, followed by Esmarch, fluffs, and Zeus wrap. The amount of tissue removed from the right breast was 340 g, left breast 496 g. Implant weighed 394 g. The patie nt tolerated procedure well and returned to recovery room. DIANNE/MARIANNA Voice ID: [id number] Report ID: [id number]
== END 2020-07-14 17:51 | disposition home or self-care (01) ==
LOC: OR 08:48
PROVIDERS: ATTEND Specialist
PROC: 0HPU0JZ Removal of Synthetic Substitute from Left Breast, Open Approach (ICD-10-PCS; 2020-07-14)
PROC: 0HPT0JZ Removal of Synthetic Substitute from Right Breast, Open Approach (ICD-10-PCS; 2020-07-14)
PROC: 0H0V0ZZ Alteration of Bilateral Breast, Open Approach (ICD-10-PCS; principal; 2020-07-14 09:00)
DX: N64.81 Ptosis of breast (principal); Z45.812 Encounter for adjustment or removal of left breast implant; Z45.811 Encounter for adjustment or removal of right breast implant; Z20.828 Contact with and (suspected) exposure to other viral communicable diseases
CPT/HCPCS: 93005; 85025; 36415; 81025; 88305; 71046; 19316; 19328; J2704; J1200; J1580; J2250 ×2; J3010 ×3; J1100; J2175; J1170 ×3; J2710; J0690 ×2; J7120 ×3; J2405 ×2; 81003; 81015